=== PATIENT | female | born 1990 | race Caucasian/White ===

== ENCOUNTER 2020-06-14 16:41 | Outpatient (RCR) | payer OTHER, SELFPAY ==
[2020-06-15] MEDS: RHO(D) IMMUNE GLOBULIN 300 MCG SYRINGE IM (09:35)
== END 2020-09-08 23:59 | disposition home or self-care (01) ==
LOC: ANHLAB 16:41
PROVIDERS: Visit Provider Obstetrics & Gynecology
DX: Z29.13 Encounter for prophylactic Rho(D) immune globulin (principal); O36.0990 Maternal care for other rhesus isoimmunization, unspecified trimester, not applicable or unspecified; Z3A.00 Weeks of gestation of pregnancy not specified
CPT/HCPCS: 36415; 85461; 90384; 96372; J2790

== ENCOUNTER 2020-08-06 09:31 | Outpatient (RCR) | payer OTHER, SELFPAY ==
[2020-07-23 09:30] VITALS: BP 142/90
[2020-08-06 10:48] LABS: Hematocrit 36.1 % (37.0-47.0); Hemoglobin 12.5 g/dL (12.0-15.0); Mean Corpuscular HGB Conc 34.6 g/dl (32-36); Mean Corpuscular Hemoglobin 29.7 pg (26-34); Mean Corpuscular Volume 85.7 fl (80-100); Mean Platelet Volume 10.4 fl (7.4-10.4); Platelet Count Result 262 k/mm3 (150-375); Red Blood Count 4.21 M/mm3 (4.2-5.4); White Blood Count 11.3 K/mm3 (4.5-10.0)
--- NOTE | 2020-08-06 10:54 | PC.NURSE ---
1023--Page returned by Dr. Hoover, reported pt's BP's, current medication, reactive NST and GA of 35.6 weeks. Orders received for [facility] labs to be done at this time and call with results.
[2020-08-06 11:00] VITALS: BP 150/101; PULSE 110
[2020-08-06 11:00] LABS: Creatinine Urine 288.5 mg/dL; Total Protein Urine Random 17 mg/dL
[2020-08-06 11:01] LABS: Alanine Aminotransferase 16 U/L (4-35); Albumin Level 3.8 g/dL (3.5-5.1); Alkaline Phosphatase 167 U/L (38-126); Anion Gap 8 mmol/L (8-16); Aspartate Amino Transferase 24 U/L (14-36); Bilirubin,Total 0.1 mg/dL (0.2-1.3); Blood Urea Nitrogen 11 mg/dL (7-17); Calcium 9.1 mg/dL (8.4-10.2); Carbon Dioxide 20 mmol/L (22-30); Chloride 104 mmol/L (98-107); Estimated Glomerular Filt Rate > 60; Glucose 121 mg/dL (65-105); Potassium 3.9 mmol/L (3.4-5.0); Sodium 132 mmol/L (137-145)
--- NOTE | 2020-08-06 11:25 | PC.NURSE ---
1120--Dr. Hoover at to see pt., lab results, BP's, and NST reivewed. Orders for betamethasone IM today and repeat in 24hrs.
--- NOTE | 2020-08-06 11:56 | WPDOBADMIT ---
Obstetrics - Admit Note Admission Note: record reviewed. Additions to the history and/or subsequent changes in the physical findings follow. 29 y/o G1 at 35 6/7 weeks with chronic HTN, here for NST. She is taking nifedipine XL 90 mg daily, had a dose this morning. Anxiety is worsening. She has bp measurements from home over the last few days in the 140/80 range. No headache, epigastric or RUQ pain or headache. No edema. Good movement. She has always been plagued by white coat HTN and it is difficult to assess her blood pressure when she is upset. She is visibly upset this morning. BP 150/90 initially. Has increased as she has gotten more upset. Otherwise, VSS. ABD soft, nontender, gravid EXT nontender, no edema NEURO: DTR 2+/4 and symmetric. NST reactive TOCO: no contractions. Cr 0.9, uric acid 7. Otherwise, labs unremarkable and urine Pr:Cr is low. A: IUP at 35 6/7 weeks, chronic HTN, anxiety. Doubt preeclampsia. P: Home to monitor bp at home. Reviewed instructions. Start a course of betamethasone and see me on Saturday. Also start fluoxetine 20 mg po daily. Reviewed instructions, precautions, risks/benefits in detail.
== END 2020-08-16 07:59 | disposition home or self-care (01) ==
LOC: ANHOBOP 09:31
PROVIDERS: Visit Provider Obstetrics & Gynecology
DX: O16.3 Unspecified maternal hypertension, third trimester (principal); Z3A.34 34 weeks gestation of pregnancy; Z3A.36 36 weeks gestation of pregnancy
CPT/HCPCS: 36415; 59025; 80053; 81050; 82570; 84156; 84550; 85027

== ENCOUNTER 2020-08-07 11:59 | Outpatient (RCR) | payer OTHER, SELFPAY ==
[2020-08-06] MEDS: BETAMETHASONE SOD PHOS/ACETATE 30 MG/5 ML VIAL 12 MG IM (11:50)
[2020-08-07] MEDS: BETAMETHASONE SOD PHOS/ACETATE 30 MG/5 ML VIAL 12 MG IM (12:11)
== END 2020-08-16 07:59 | disposition home or self-care (01) ==
LOC: ANHOBOP 11:59
PROVIDERS: Visit Provider Obstetrics & Gynecology
DX: O36.8990 Maternal care for other specified fetal problems, unspecified trimester, not applicable or unspecified (principal); Z3A.00 Weeks of gestation of pregnancy not specified
CPT/HCPCS: 96372; J0702

== ENCOUNTER 2020-08-15 18:20 | Inpatient (IN) | payer OTHER, SELFPAY ==
[2020-08-15] VITALS (13 sets, daily range): BP systolic 143–179; BP diastolic 81–113; PULSE 79–105; TEMP 36.9; BMI 37.9
[2020-08-15 19:15] LABS: Basophils Percent Auto 0.2 % (0.2-1.2); Hematocrit 36.6 % (37.0-47.0); Hemoglobin 12.9 g/dL (12.0-15.0); Immature Granulocyte Absolute 0.08 K/mm3 (0.00-0.031); Immature Granulocyte Percent A 0.6 % (0-0.5); Lymphocytes Absolute Auto 2.42 K/mm3 (0.9-3.2); Lymphocytes Percent Auto 19.3 % (18.3-44.2); Mean Corpuscular HGB Conc 35.2 g/dl (32-36); Mean Corpuscular Hemoglobin 29.9 pg (26-34); Mean Corpuscular Volume 84.7 fl (80-100); Mean Platelet Volume 10.5 fl (7.4-10.4); Monocytes Absolute Auto 0.8 K/mm3 (0.1-0.6); Neutrophils Absolute Auto 9.3 K/mm3 (1.3-6.7); Neutrophils Percent Auto 73.9 % (45.5-73.1); Platelet Count Result 276 k/mm3 (150-375); Red Blood Count 4.32 M/mm3 (4.2-5.4); Red Cell Distribution Width 11.9 % (11.5-14.5); White Blood Count 12.6 K/mm3 (4.5-10.0)
[2020-08-15 19:25] LABS: Anion Gap 9 mmol/L (8-16); Blood Urea Nitrogen 13 mg/dL (7-17); Carbon Dioxide 22 mmol/L (22-30); Chloride 96 mmol/L (98-107); Estimated Glomerular Filt Rate > 60; Glucose 91 mg/dL (65-105); Potassium 3.6 mmol/L (3.4-5.0); Sodium 127 mmol/L (137-145); Uric Acid 6.8 mg/dL (2.5-7.5)
[2020-08-15 19:26] LABS: Alanine Aminotransferase 17 U/L (4-35); Alkaline Phosphatase 168 U/L (38-126); Aspartate Amino Transferase 28 U/L (14-36); Bilirubin,Total 0.2 mg/dL (0.2-1.3)
[2020-08-15] MEDS: LACTATED RINGERS 1,000 ML 125 ML IV CONT (19:26)
[2020-08-15] MEDS: ceFAZolin 2 GM/D5W 50 ML 2 GM/50 ML BAG IVPB (19:27)
--- NOTE | 2020-08-15 19:49 | LDADM ---
This patient, Ally Rodrigues, was admitted to Labor/Delivery/Recovery 105 on 08/15/20 at 18:20. Plans for labor, pain management and were discussed with patient. Patient/family oriented to hospital policies and general routines including ID bracelet, bed and alarms, visiting hours, pain management, procedures, bathroom and other care routines, personal items, smoking policy, room service/diet and guest tray routines, security routines, and visiting hours. Patient/Family are encouraged to report perceived risks to care and to ask questions if they do not understand what they are told or what they should do. See OBIX for further documentation.
[2020-08-15] MEDS: DINOPROSTONE 10 MG VAG INSERT VAGINAL (19:59)
[2020-08-15] MEDS: fentaNYL CITRATE INJ (*CRX) 100 MCG/2 ML VIAL IV PUSH (23:15)
[2020-08-16] VITALS (175 sets, daily range): BP systolic 118–175; BP diastolic 75–133; PULSE 49–132; RESP 14–20; TEMP 36.4–37.1; O2SAT 89–100
[2020-08-16] MEDS: fentaNYL CITRATE INJ (*CRX) 100 MCG/2 ML VIAL IV PUSH ×2 (01:47→03:35)
[2020-08-16] MEDS: OXYTOCIN 30 UNITS/NS 500 ML 30 UNITS/500 ML BAG 6 UNITS IV CONT (05:42)
--- NOTE | 2020-08-16 07:39 | WPDANESEPP ---
Anes - Eval Pre Procedure Procedure: Labor epidural Date/Time: 08/16/20 07:39 Surgeon: Sneha Preop Diagnosis: pain during labor Pre Op Diagnosis: IOL Patient Data Age: 29 Gender: F Height: 1.68 m Weight: 106.5 kg Last Vital Signs Temp 36.8 C 08/16/20 06:56 Pulse 97 08/16/20 07:37 BP 147/87 H 08/16/20 07:37 Pulse Ox 100 08/16/20 07:39 Allergies Allergy/AdvReac Type Severity Reaction Status Date / Time succinylcholine Allergy Severe MALIGNANT Verified 08/06/20 14:57 HYPERTHERMIA Penicillins Allergy Unknown Hives Verified 08/06/20 14:44 DIPHENHYDRAMINE HCL Allergy Severe HIVES/NAUSEA Uncoded 08/12/17 14:09 AND VOMITING Home Medications Medication Instructions Recorded Confirmed Type fluoxetine 20 mg PO DAILY #30 cap 08/06/20 08/15/20 Rx nifedipine 60 mg PO BID 08/06/20 08/15/20 History Laboratory Tests 08/15/20 08/15/20 08/15/20 19:06 19:06 19:06 WBC 12.6 K/mm3 H K/mm3 (4.5-10.0) RBC 4.32 M/mm3 M/mm3 (4.2-5.4) Hgb 12.9 g/dL g/dL (12.0-15.0) Hct 36.6 % L % (37.0-47.0) MCV 84.7 fl fl (80-100) MCH 29.9 pg pg (26-34) MCHC 35.2 g/dl g/dl (32-36) RDW 11.9 % % (11.5-14.5) Plt Count 276 k/mm3 k/mm3 (150-375) MPV 10.5 fl H fl (7.4-10.4) Immature Gran % (Auto) 0.6 % H % (0-0.5) Neut % (Auto) 73.9 % H % (45.5-73.1) Lymph % (Auto) 19.3 % % (18.3-44.2) [place] % (Auto) 6.0 % % (2.6-8.5) Eos % (Auto) 0.0 % % (0-4.4) Baso % (Auto) 0.2 % % (0.2-1.2) Lymph # (Auto) 2.42 K/mm3 K/mm3 (0.9-3.2) [place] # (Auto) 0.8 K/mm3 H K/mm3 (0.1-0.6) Eos # (Auto) 0.0 K/mm3 K/mm3 (0-0.3) Baso # (Auto) 0.0 K/mm3 K/mm3 (0.0-0.1) Abs Immat Gran (auto) 0.08 K/mm3 H K/mm3 (0.00-0.031) Absolute Neuts (auto) 9.3 K/mm3 H K/mm3 (1.3-6.7) Absolute Nucleated RBC 0.0 K/mm3 K/mm3 (0.0-0.012) Nucleated RBC % 0.0 % % (0.0-0.2) Sodium 127 mmol/L L mmol/L (137-145) Potassium 3.6 mmol/L mmol/L (3.4-5.0) Chloride 96 mmol/L L mmol/L (98-107) Carbon Dioxide 22 mmol/L mmol/L (22-30) Anion Gap 9 mmol/L mmol/L (8-16) BUN 13 mg/dL mg/dL (7-17) Creatinine 0.80 mg/dL mg/dL (0.7-1.0) Estim Creat Clear Calc Not Reportable Estimated GFR > 60 (59 - ) Glucose 91 mg/dL mg/dL (65-105) Uric Acid 6.8 mg/dL mg/dL (2.5-7.5) Calcium 9.0 mg/dL mg/dL (8.4-10.2) Total Bilirubin 0.2 mg/dL mg/dL (0.2-1.3) AST 28 U/L U/L (14-36) ALT 17 U/L U/L (4-35) Alkaline Phosphatase 168 U/L H U/L (38-126) Total Protein 7.0 g/dL g/dL (6.3-8.2) Albumin 4.0 g/dL g/dL (3.5-5.1) RPR Pending Blood Type Antibody Screen Antibody Identification Antigen Identification CHUCK, IgG Interpret CHUCK, Poly Interpret CHUCK, Complement Interp 08/15/20 08/15/20 19:06 19:06 WBC RBC Hgb Hct MCV MCH MCHC RDW Plt Count MPV Immature Gran % (Auto) Neut % (Auto) Lymph % (Auto) [place] % (Auto) Eos % (Auto) Baso % (Auto) Lymph # (Auto) [place] # (Auto) Eos # (Auto) Baso # (Auto) Abs Immat Gran (auto) Absolute Neuts (auto) Absolute Nucleated RBC Nucleated RBC % Sodium Cancelled Potassium Cancelled Chloride Cancelled Carbon Dioxide Cancelled Anion Gap Cancelled BUN Cancelled Creatinine Cancelled Estim Creat Clear Calc Can
[2020-08-16] MEDS: LACTATED RINGERS 1,000 ML 125 ML IV CONT (07:42)
[2020-08-16 08:24] LABS: Rapid Plasma Reagin Non-Reactive (NonReactive)
--- NOTE | 2020-08-16 08:40 | PM.IMHP ---
H&P: HPI History of Present Illness Date/Time: 08/16/20 12:52 Chief complaint: IOL Narrative: 29 y/o G1 at 37 3/7 weeks with chronic hypertension, worsening blood pressure control. She is taking Procardia XL 60 mg po bid. No headache, no epigastric or RUQ pain, no visual field change. Good movement. Cervidil overnight, has been withdrawn. She is starting to feel more painful contractions. GBS pos. Received steroids for lung maturity last week. Review of Systems Review of Systems: All systems reviewed & are unremarkable except as noted in HPI and below PMFSH Past Medical History Medical History Depression Obesity (BMI 35.0-39.9 without comorbidity) PIH ( induced hypertension) Family History Family History Mother Family history of allergic disorder Family history of anemia Asthma Other Carcinoma of colon Father Hypertension Social History Social History Smoking status: Never smoker Second hand tobacco smoke exposure: No Alcohol intake: current Substance use: never Spiritual care concerns: No Meds Home Medications and Allergies Home Medications Medication Instructions Recorded Confirmed Type fluoxetine 20 mg PO DAILY #30 cap 08/06/20 08/15/20 Rx nifedipine 60 mg PO BID 08/06/20 08/15/20 History Allergies Allergy/AdvReac Type Severity Reaction Status Date / Time succinylcholine Allergy Severe MALIGNANT Verified 08/06/20 14:57 HYPERTHERMIA Penicillins Allergy Unknown Hives Verified 08/06/20 14:44 DIPHENHYDRAMINE HCL Allergy Severe HIVES/NAUSEA Uncoded 08/12/17 14:09 AND VOMITING Vital Signs Vital Signs - 24 hr 08/15/20 19:01 08/15/20 19:26 08/15/20 19:31 Temperature Pulse Rate 105 H 89 88 Blood Pressure 175/108 H 179/108 H 164/107 H Pulse Oximetry 08/15/20 19:33 08/15/20 20:01 08/15/20 20:31 Temperature 36.9 C Pulse Rate 79 84 Blood Pressure 168/101 H 147/104 H Pulse Oximetry 08/15/20 21:01 08/15/20 21:31 08/15/20 21:55 Temperature 36.9 C Pulse Rate 89 102 H Blood Pressure 143/81 H 144/82 H Pulse Oximetry 08/15/20 22:01 08/15/20 22:31 08/15/20 23:01 Temperature Pulse Rate 89 91 90 Blood Pressure 158/106 H 163/103 H 170/113 H Pulse Oximetry 08/15/20 23:31 08/16/20 00:01 08/16/20 00:31 Temperature Pulse Rate 93 95 98 Blood Pressure 157/109 H 157/89 H 155/86 H Pulse Oximetry 08/16/20 00:44 08/16/20 01:01 08/16/20 01:31 Temperature 36.8 C Pulse Rate 97 94 Blood Pressure 151/89 H 153/93 H Pulse Oximetry 08/16/20 01:50 08/16/20 02:40 08/16/20 02:46 Temperature 36.6 C Pulse Rate 94 87 Blood Pressure 150/100 H Pulse Oximetry 08/16/20 03:01 08/16/20 03:31 08/16/20 04:01 Temperature Pulse Rate 86 85 83 Blood Pressure 167/111 H 158/101 H 157/105 H Pulse Oximetry 08/16/20 04:31 08/16/20 05:01 08/16/20 05:12 Temperature 36.4 C Pulse Rate 82 85 Blood Pressure 158/110 H 159/108 H Pulse Oximetry 08/16/20 05:31 08/16/20 06:01 08/16/20 06:31 Temperature Pulse Rate 81 88 92 Blood Pressure 150/100 H 169/97 H 156/97 H Pulse Oximetry 08/16/20 06:56 08/16/20 07:01 08/16/20 07:06 Temperature 36.8 C Pulse Rate 83 Blood Pressure 160/106 H Pulse Oximetry 99 100 98 08/16/20 07:11 08/16/20 07:16 08/16/20 07:21 Temperature Pulse Rate Blood Pressure Pulse Oximetry 100 100 100 08/16/20 07:26 08/16/20 07:31 08/16/20 07:32 Temperature Pulse Rate 92 91 Blood Pressure 154/105 H 163/92 H Pulse Oximetry 100 100 08/16/20 07:34 08/16/20 07:37 08/16/20 07:39 Temperature Pulse Rate 112 H 97 Blood Pressure 146/133 H 147/87 H Pulse Oximetry 100 100 08/16/20 07:40 08/16/20 07:43 08/16/20 07:44 Temperature Pulse Ra
--- NOTE | 2020-08-16 12:57 | PM.OBPNLAB ---
Pain Control Date/time seen: 08/16/20 12:57 Comments: Comfortable with epidural. BP 140-160/90. Otherwise, AVSS. Pelvic Exam Dilation (cm): 4 Effacement (%): 50 station: -2 Contractions Contraction frequency: 3 Contraction pattern: Regular Status status: Category l Assessment and Plan Comments: Continue oxytocin.
--- NOTE | 2020-08-16 16:33 | PM.OBPNLAB ---
Pain Control Date/time seen: 08/16/20 16:33 Comments: Still comfortable Pelvic Exam Effacement (%): 80 station: -2 Comments: -/-2 Contractions Contraction frequency: 3 Contraction pattern: Regular Status status: Category l
--- NOTE | 2020-08-16 17:45 | PM.OBPNLAB ---
Pain Control Date/time seen: 08/16/20 17:45 Comments: Still comfortable. Pelvic Exam Dilation (cm): 4 Effacement (%): 80 station: -2 Contractions Contraction frequency: 3 Contraction pattern: Regular Status status: Category l Assessment and Plan Comments: A: Arrest of dilation in labor. No significant progress in 5 hours despite adequate contractions by IUPC. P: Offered . Reviewed risks, benefits, alternatives in detail. She understands and elects to proceed.
--- NOTE | 2020-08-16 17:56 | WPDANESEFPP ---
Anes - Eval Final PreProcedure Day of Procedure 08/16/20 17:56 Patient weight: obese Heart: regular rate and rhythm Lungs: clear to auscultation and normal air movement Airway: Mallampati scale class 1 Neurological: alert and oriented Last oral intake: >/= 8 hours ASA classification: III Emergent: no Anesthetic plan: proceed Anesthesia type and monitoring: regional epidural and standard monitoring Other findings: C section - family history of MH Informed Consent: The patient's anesthetic plan and its attendant risks and benefits were discussed with the patient/family/POA. Questions were solicited and answers provided to the satisfaction of the patient/family/POA.
[2020-08-16] MEDS: ceFAZolin 2 GM/D5W 50 ML 2 GM/50 ML BAG IVPB (18:11)
--- NOTE | 2020-08-16 18:57 | P.PCNOB_ITS ---
OB - Delivery Note Procedure Procedure: Procedures Operation Date: 08/16/20 18:00 <No data on this case meets the specified criteria> Primary low transverse delivery Delivery monitor: external FHT, external uterine and internal uterine Route of delivery: Specimen: Yes (cord blood, placenta) Estimated blood loss (mL): 585 Anesthesia type: Epidural Disposition: PACU Complications: None Narrative: The patient was taken to the operating room where she was prepared and draped in the usual sterile fashion in dorsal supine position with a leftward tilt. She received cefazolin preoperatively. Spinal anesthesia was found to be adequate. A Pfannenstiel skin incision was made and carried through to the underlying layer of the fascia. The fascia was incised in the midline and the incision was extended laterally. The fascia was dissected free of the underlying rectus muscles. The rectus muscles were in the midline. The peritoneum was identified, tented up and entered sharply. The peritoneal incision was extended superiorly and inferiorly with good visualization of the bladder. The bladder blade was placed. The vesicouterine peritoneum was identified, tented up and entered sharply. The incision was extended laterally and the bladder flap was developed. The bladder blade was replaced. The uterus was then incised sharply in a transverse fashion along the lower uterine segment. The incision was extended laterally. The infant's head was delivered atraumatically to the sterile field, followed by the body. The nose and mouth were bulb suctioned. After a delay, the cord was clamped and cut. The infant was handed off the field. Cord blood was collected. The placenta was removed manually and was passed off the field. The uterus was exteriorized and cleared of all clots and debris. The uterine incision was reapproximated using 0 Monocryl in a running, locked fashion. A second, imbricating layer of the same suture was placed. Excellent hemostasis resulted as did excellent reapproximation of the normal anatomy. The uterus was returned the abdomen. The pelvis was irrigated copiously with warmed normal saline. Rigorous hemostasis was assured. The fascial layer was reapproximated using 0 Vicryl in a running fashion. Interrupted sutures of 2-0 plain gut were placed to reapproximate the subcutaneous tissue. The skin was closed with a running, subcuticular stitch of 4 0 Vicryl. Dermaflex was applied externally. Sponge, lap, needle and instrument counts were correct. The patient was taken to the recovery room in stable condition. The went to the nursery in stable condition. I was present and scrubbed the entire procedure. [place] Baby Date of : 08/16/20 Time of : 18:27 Weeks of gestation at delivery: 37 gender: Male Weight (pounds): 6 Weight (ounces): 9 presentation: vertex Placenta delivery description: Manual Removal and Normal Configuration cord vessel description: 3 Vessels score one minute: 7 score five minutes: 9
--- NOTE | 2020-08-16 18:59 | PM.OBDSVD ---
DS: Admitting Diagnosis Admitting Diagnosis Admitting Diagnosis: IUP at 37 3/7 weeks Chronic hypertension with worsening blood pressure control GBS colonization OB - DS: Summary OB Procedures : None OB Procedures Intrapartum: OB Procedures: : RHo (D) lg Peripartum Data Procedures: Procedures Operation Date: 08/16/20 18:00 <No data on this case meets the specified criteria> Time Spent with Patient Time attestation: Total time spent providing and/or coordinating discharge services: DS: Data Data Completed and Pending Labs on day of discharge: Labs from last 24 hours 08/15/20 08/15/20 08/15/20 19:06 19:06 19:06 WBC RBC Hgb Hct MCV MCH MCHC RDW Plt Count MPV Immature Gran % (Auto) Neut % (Auto) Lymph % (Auto) [place] % (Auto) Eos % (Auto) Baso % (Auto) Lymph # (Auto) [place] # (Auto) Eos # (Auto) Baso # (Auto) Abs Immat Gran (auto) Absolute Neuts (auto) Absolute Nucleated RBC Nucleated RBC % Sodium Cancelled Potassium Cancelled Chloride Cancelled Carbon Dioxide Cancelled Anion Gap Cancelled BUN Cancelled Creatinine Cancelled Estim Creat Clear Calc Cancelled Estimated GFR Cancelled Glucose Cancelled Uric Acid Calcium Cancelled Total Bilirubin Cancelled AST Cancelled ALT Cancelled Alkaline Phosphatase Cancelled Total Protein Cancelled Albumin Cancelled RPR Non-reactive Blood Type A Negative Antibody Screen Positive Antibody Identification Passive Due to RH Imm Glob Antigen Identification Cancelled CHUCK, IgG Interpret Not Performed CHUCK, Poly Interpret Negative CHUCK, Complement Interp Not Performed 08/15/20 08/15/20 19:06 19:06 WBC 12.6 H RBC 4.32 Hgb 12.9 Hct 36.6 L MCV 84.7 MCH 29.9 MCHC 35.2 RDW 11.9 Plt Count 276 MPV 10.5 H Immature Gran % (Auto) 0.6 H Neut % (Auto) 73.9 H Lymph % (Auto) 19.3 [place] % (Auto) 6.0 Eos % (Auto) 0.0 Baso % (Auto) 0.2 Lymph # (Auto) 2.42 [place] # (Auto) 0.8 H Eos # (Auto) 0.0 Baso # (Auto) 0.0 Abs Immat Gran (auto) 0.08 H Absolute Neuts (auto) 9.3 H Absolute Nucleated RBC 0.0 Nucleated RBC % 0.0 Sodium 127 L Potassium 3.6 Chloride 96 L Carbon Dioxide 22 Anion Gap 9 BUN 13 Creatinine 0.80 Estim Creat Clear Calc Not Reportable Estimated GFR > 60 Glucose 91 Uric Acid 6.8 Calcium 9.0 Total Bilirubin 0.2 AST 28 ALT 17 Alkaline Phosphatase 168 H Total Protein 7.0 Albumin 4.0 RPR Blood Type Antibody Screen Antibody Identification Antigen Identification CHUCK, IgG Interpret CHUCK, Poly Interpret CHUCK, Complement Interp Discharge Plan Discharge Attending physician on discharge: Felton Hoover Discharging Clinician: Felton Hoover Patient Disposition: Home, Self-Care Activity: may shower, may drive after 2 weeks and pelvic rest Diet: regular Wound Care Instructions: incision open to air Discharge Instructions: Education: Mom and Baby Guide Given to: Mother Follow-Up: Call your delivering provider's office for an appointment to be seen in: 1 Week Mom and baby should come to the [facility] for the follow-up appointment. Appointment Date/Time: August 19, 2020 at 10:00 am What to expect at your follow-up visit: Blood Pressure Check Call [phone] if you are unable to keep your appointment time. BREAST CARE: * Wear a snug supportive bra. * For engorgement discomfort: Breast Feeding: * Apply warm moist washcloths * Express milk as needed to relieve engorgement * Wear loose clothing Bottle Feeding: * May apply ice packs * For sore nipples: * Identify correct latch-on * Apply warm moist washcloths before and after nursing * Air dry nipples after
[2020-08-16] MEDS: OXYTOCIN 30 UNITS/NS 500 ML 30 UNITS/500 ML BAG 125 UNITS IV CONT (19:28)
--- NOTE | 2020-08-16 21:10 | PC.NURSE ---
Pt recovery completed. Report called to Merced Aden RN. Pt going to room 284 for pp care. Stopping by labor room to show family baby through window and then will be moved up to pp floor.
--- NOTE | 2020-08-16 21:29 | PC.NURSE ---
Pt states she took home dose of Procardia 60mg Xl at 1800 per 's instruction. Will not give scheduled 2100 dose, will restart in am.
--- NOTE | 2020-08-16 21:30 | PC.NURSE ---
Pt taken up to room 284 at this time via stretcher. , SO and belongings all with pt.
--- NOTE | 2020-08-16 21:35 | OBPPTRN ---
Patient transferred to post room #284 via stretcher. Support person present. Oriented to unit, room, information board, rooming in, admission packet and security measures. Patient verbalizes understanding.
[2020-08-16] MEDS: IBUPROFEN 600 MG TABLET PO (22:21)
[2020-08-16] MEDS: DEXTROSE 5%/0.45% SOD CHL 1,000 ML 125 ML IV CONT (23:46)
[2020-08-16] MEDS: HYDROcodone/acetaminophen (*CRX) 5-325 MG TABLET 1 TAB PO (23:46)
[2020-08-17] VITALS (7 sets, daily range): BP systolic 138–160; BP diastolic 90–95; PULSE 75–100; RESP 16–20; TEMP 36.4–36.9; O2SAT 99–100
[2020-08-17] MEDS: HYDROcodone/acetaminophen (*CRX) 5-325 MG TABLET 1 TAB PO ×5 (04:34→22:59)
[2020-08-17] MEDS: IBUPROFEN 600 MG TABLET PO ×4 (04:34→22:59)
[2020-08-17 05:10] LABS: Basophils Absolute Auto 0.1 K/mm3 (0.0-0.1); Basophils Percent Auto 0.3 % (0.2-1.2); Hematocrit 32.6 % (37.0-47.0); Hemoglobin 11.4 g/dL (12.0-15.0); Immature Granulocyte Absolute 0.25 K/mm3 (0.00-0.031); Immature Granulocyte Percent A 0.9 % (0-0.5); Lymphocytes Absolute Auto 3.04 K/mm3 (0.9-3.2); Lymphocytes Percent Auto 11.1 % (18.3-44.2); Mean Corpuscular Hemoglobin 30.5 pg (26-34); Mean Corpuscular Volume 87.2 fl (80-100); Mean Platelet Volume 10.7 fl (7.4-10.4); Monocytes Absolute Auto 1.6 K/mm3 (0.1-0.6); Monocytes Percent Auto 5.9 % (2.6-8.5); Neutrophils Absolute Auto 22.3 K/mm3 (1.3-6.7); Neutrophils Percent Auto 81.8 % (45.5-73.1); Platelet Count Result 223 k/mm3 (150-375); Red Blood Count 3.74 M/mm3 (4.2-5.4); Red Cell Distribution Width 12.2 % (11.5-14.5); White Blood Count 27.3 K/mm3 (4.5-10.0)
--- NOTE | 2020-08-17 07:45 | PC.NURSE ---
PT introductions made and plan of care discussed per post op c section , pain management, breast feeding, daily care activities. PT verbalized understanding of such care.
--- NOTE | 2020-08-17 08:56 | P.PNOB_ITS ---
OB - PN: Subj Subjective Date/time seen: 08/17/20 08:56 Narrative: Pain OK. Tolerating diet. Would like circumcision for son. OB - PN: Obj Data Labs CBC & Chem 7: 08/17/20 04:23 08/15/20 19:06 Labs: Laboratory Results - last 24 hr 08/17/20 08/17/20 04:23 04:23 WBC 27.3 H RBC 3.74 L Hgb 11.4 L Hct 32.6 L MCV 87.2 MCH 30.5 MCHC 35.0 RDW 12.2 Plt Count 223 MPV 10.7 H Immature Gran % (Auto) 0.9 H Neut % (Auto) 81.8 H Lymph % (Auto) 11.1 L [place] % (Auto) 5.9 Eos % (Auto) 0.0 Baso % (Auto) 0.3 Lymph # (Auto) 3.04 [place] # (Auto) 1.6 H Eos # (Auto) 0.0 Baso # (Auto) 0.1 Abs Immat Gran (auto) 0.25 H Absolute Neuts (auto) 22.3 H Absolute Nucleated RBC 0.0 Nucleated RBC % 0.0 Blood Type A Negative Antibody Screen TNP Screen Negative Baby's Blood Type O pos Baby's CHUCK Negative Doses of RhIg Required 1 OB - PN A/P Plan Comments: A: POD#1, doing well. P: Routine care. Reviewed circ. Exam Narrative: Exam Narrative: AVSS I/O OK ABD soft, nontender, fundus firm. Incision c/d/i. EXT nontender
--- NOTE | 2020-08-17 09:45 | PC.NURSE ---
Mother called out for assist with feeding . Consulted with patient, mother reports infant is sleepy and is having difficulties with latching. is inconsistent with eagerness and latching, some feedings infant will be easily awoken and latch other mother struggles to get to latch. Discussed and the 37 week , establishing may have it's own unique set of circumstances due to their immaturity. infants may be less alert, have less stamina and may have issues with latch, suck and swallow. With the possible inability to have a vigorous suck swallow, infants may not be adequately stimulating mother and/or able to have adequate milk transfer. Pumping should be considered for additional stimulation and to offer EBM as part of supplement if needed. Reviewed infant feeding cues, frequencies, duration of feedings, feeding elimination flow sheet, and signs of adequate intake. Demonstrated stimulation techniques to wake infant for feeding. Assisted with to breast. Reviewed positioning/alignment in cross cradle, holding breast in U hold and guided asymmetrical latch on. Discussed the rational for each. was able to latch correctly. Infant held nipple in with no effective suckling noted. Advised to stimulate while feeding to keep infant awake and effectively feeding for increased intake and to assist with maintaining deep latch. Demonstrated how to adjust latch more deeply while feeding. Discussed feeding options at this time. has not nursed for 5.5 hours. Parents would like infant to be supplemented and mother will initiate pumping.
--- NOTE | 2020-08-17 10:00 | PC.NURSE ---
Breast pump provided due to ineffective feeding. Instructions given on breast pump care and usage, pumping schedule, nipple care, and collection and storage of breast milk. Encouraged [id number], breast massage and manual expression to stimulate supply. Assessed patient for correct flange size, placement and draw. Patient verbalizes and demonstrates understanding of instructions.
[2020-08-17] MEDS: SIMETHICONE 80 MG TAB.CHEW PO ×2 (10:45→16:06)
[2020-08-17] MEDS: MULTIVIT/MIN/PREN/FOL AC/IRON TABLET 1 TAB PO (10:46)
[2020-08-17] MEDS: DOCUSATE SODIUM 100 MG CAPSULE PO ×2 (10:46→16:06)
[2020-08-17] MEDS: FLUoxetine HCL 20 MG CAPSULE PO (10:47)
[2020-08-17] MEDS: LANOLIN (LANSINOH) 7.5 GM CREAM 1 APPLIC TOPICAL (10:49)
--- NOTE | 2020-08-17 11:09 | WPDANLDPN2 ---
Anes-Prog Note L&D Date/Time: 08/17/20 11:09 Comfortable throughout: section Neuraxial method: spinal Epidural/Spinal procedure site: clean & non-tender Neuro status: Neuro function grossly intact. Cardiovascular status: normal Respiratory status: normal Airway patency: baseline Mental status: baseline Post-Op hydration status: normal Vital Signs: Last Vital Signs Temp 36.4 C 08/17/20 04:00 Pulse 75 08/17/20 04:00 Resp 16 08/17/20 04:00 BP 157/90 H 08/17/20 04:00 Pulse Ox 100 08/17/20 04:00 Pain score (VAS): 12/04 I/O: Intake & Output 08/16/20 08/17/20 08/17/20 23:59 07:59 15:59 Intake Total 1550 500 Output Total 278 3050 Balance 1272 -2550 Post-procedural complaints: none Patient feedback: Patient satisfied with anesthetic care.
--- NOTE | 2020-08-17 11:09 | WPDANLDNPN2 ---
Anes-Prog Note L&D-Neuraxial Date/Time: 08/17/20 11:09 Neuraxial medications: intrathecal PF morphine Opiod-related complaints: none Patient feedback: Patient satisfied with post-operative pain management.
[2020-08-17] MEDS: NIFEdipine 30 MG TAB.ER.24 60 MG PO (20:16)
[2020-08-18] MEDS: HYDROcodone/acetaminophen (*CRX) 5-325 MG TABLET 1 TAB PO ×5 (04:36→22:53)
[2020-08-18] MEDS: IBUPROFEN 600 MG TABLET PO ×3 (04:36→22:52)
--- NOTE | 2020-08-18 07:45 | PC.NURSE ---
PT introductions made and plan of care discussed per post op c section, pain management, breast feeding, daily care activities. PT verbalized understanding of such care.
[2020-08-18 08:15] VITALS: BP 145/97; PULSE 99; RESP 16; TEMP 36.7; O2SAT 100
[2020-08-18] MEDS: SIMETHICONE 80 MG TAB.CHEW PO ×3 (08:42→17:10)
[2020-08-18] MEDS: FLUoxetine HCL 20 MG CAPSULE PO (08:42)
[2020-08-18] MEDS: DOCUSATE SODIUM 100 MG CAPSULE PO ×2 (08:42→17:10)
[2020-08-18] MEDS: NIFEdipine 30 MG TAB.ER.24 60 MG PO ×2 (08:42→22:53)
[2020-08-18] MEDS: MULTIVIT/MIN/PREN/FOL AC/IRON TABLET 1 TAB PO (08:42)
[2020-08-18 08:45] VITALS: PULSE 99; RESP 16; O2SAT 100
--- NOTE | 2020-08-18 08:59 | WPDANLDPN2 ---
Anes-Prog Note L&D Date/Time: 08/18/20 08:59 Comfortable throughout: section Neuraxial method: spinal Epidural/Spinal procedure site: clean & non-tender Neuro status: Neuro function grossly intact. Cardiovascular status: normal Respiratory status: normal Airway patency: baseline Mental status: baseline Post-Op hydration status: normal Vital Signs: Last Vital Signs Temp 36.8 C 08/17/20 20:00 Pulse 100 08/17/20 20:00 Resp 20 08/17/20 20:00 BP 141/95 H 08/17/20 20:00 Pulse Ox 99 08/17/20 20:00 Pain score (VAS): 3 Post-procedural complaints: none Patient feedback: Patient satisfied with anesthetic care.
--- NOTE | 2020-08-18 09:00 | WPDANLDNPN2 ---
Anes-Prog Note L&D-Neuraxial Date/Time: 08/18/20 09:00 Neuraxial medications: intrathecal PF morphine Opiod-related complaints: none Patient feedback: Patient satisfied with post-operative pain management.
--- NOTE | 2020-08-18 11:05 | PC.NURSE ---
Consult with pt., mother reports remains sleepy for most feedings, will have a few eager feedings using the nipple shield. Mother supplements after each feeding and will then pump. Mother is attempting each feeding without shield first. Mother is able to independently latch using nipple shield. is more awake and vigorous with suckling than previous day. Encouraged to stimulate to keep awake and nursing effectively for increased intake and assist with maintaining latch. Mother is pumping without difficulties or discomfort. Requested mother call out for assist as needed.
--- NOTE | 2020-08-18 12:13 | PM.OBPNVD ---
OB - PN: Subj Subjective Date/time seen: 08/18/20 12:13 Narrative: Pain OK. OB - PN: Obj Data Labs CBC & Chem 7: 08/17/20 04:23 08/15/20 19:06 OB - PN A/P Plan Comments: A: POD#2, doing well. P: Routine care. Exam Narrative: Exam Narrative: AVSS. BP 140-150/80-90 I/O OK ABD soft, nontender, fundus firm. Incision c/d/i. Some ecchymosis of the incision and dependent lower abd/vulva. EXT nontender
[2020-08-18 14:00] VITALS: BP 150/92
[2020-08-18] MEDS: RHO(D) IMMUNE GLOBULIN 300 MCG SYRINGE IM (14:58)
[2020-08-18 15:00] VITALS: BP 148/76
[2020-08-18 19:40] VITALS: BP 151/96; PULSE 108; RESP 16; TEMP 36.6; O2SAT 100
--- NOTE | 2020-08-18 21:00 | PC.NURSE ---
Patient viewed the discharge video Mother & Baby Care, The First Two Weeks . Patient was given the opportunity and encouraged to ask questions. Patient verbalized understanding of information shared and has been given the mother/baby guide for home reference.
[2020-08-18 22:50] VITALS: BP 162/82; PULSE 110
[2020-08-19] MEDS: HYDROcodone/acetaminophen (*CRX) 5-325 MG TABLET 1 TAB PO (05:39)
[2020-08-19] MEDS: IBUPROFEN 600 MG TABLET PO (05:39)
[2020-08-19 08:30] VITALS: BP 154/87; PULSE 112; RESP 16; TEMP 36.4; O2SAT 100
[2020-08-19] MEDS: MULTIVIT/MIN/PREN/FOL AC/IRON TABLET 1 TAB PO (08:57)
[2020-08-19] MEDS: NIFEdipine 30 MG TAB.ER.24 60 MG PO (08:57)
[2020-08-19] MEDS: DOCUSATE SODIUM 100 MG CAPSULE PO (08:57)
[2020-08-19] MEDS: FLUoxetine HCL 20 MG CAPSULE PO (08:58)
--- NOTE | 2020-08-19 08:58 | PM.OBPNVD ---
OB - PN: Subj Subjective Date/time seen: 08/19/20 08:58 Narrative: Pain OK. Tolerating diet. Would like to go home. OB - PN: Obj Data Labs CBC & Chem 7: 08/17/20 04:23 08/15/20 19:06 Labs: Laboratory Results - last 24 hr 08/17/20 04:23 Blood Type A Negative Antibody Screen TNP Screen Negative Baby's Blood Type O pos Baby's CHUCK Negative Doses of RhIg Required 1 OB - PN A/P Plan Comments: A: POD#3, doing well. P: Home to f/u 4 weeks. Exam Narrative: Exam Narrative: AVSS ABD soft, nontender, fundus firm. Incision intact. Some ecchymosis. Small serosanguineous drainage. EXT nontender
--- NOTE | 2020-08-19 10:45 | PC.NURSE ---
Mother is able to independently latch with appropriate positioning/alignment without shield at times. She denies any nipple discomfort, is feeding as required and waking to feed if needed. is improving on eagerness and duration at the breast in the past 24 hours, and is currently meeting outcomes for weight, output, jaundice and feeding frequencies. Parents will continue to supplement after all feedings until mother's milk is established and infant is consistent with effective feedings. Discussed when may need to increase supplementation and when may be ready to decrease supplementation. Advised not to discontinue supplement until discussed with ICP. Mother states she feels confident to continue current feeding plan at home. Reviewed transition to breast milk, signs of adequate intake, and engorgement/relief. Instructed to call ICP if intake/output less than required. Reviewed regular medications mother is taking. Information provided per Bella. Reviewed community resources on the [facility] website and in the Mom/Baby guide. Information on outpatient services provided. Mother has no further questions at this time.
[2020-08-22 10:30] VITALS: BP 179/105; PULSE 120; RESP 24; O2SAT 100
== END 2020-08-19 14:15 | disposition home or self-care (01) | DRG 788 ==
LOC: ANHLDR 18:24 → ANHOB2 08-16 21:40
PROVIDERS: Admitting Provider Obstetrics & Gynecology; Visit Provider Obstetrics & Gynecology
PROC: 10D00Z1 Extraction of Products of Conception, Low, Open Approach (ICD-10-PCS; CPT 59514; principal; 2020-08-16 18:00)
DX: O10.92 Unspecified pre-existing hypertension complicating childbirth (principal); O99.824 Streptococcus B carrier state complicating childbirth; O62.1 Secondary uterine inertia; Z3A.37 37 weeks gestation of pregnancy; Z37.0 Single live birth; O99.214 Obesity complicating childbirth; E66.9 Obesity, unspecified
CPT/HCPCS: 36415; 80053; 84550; 85025; 85461; 86592; 86850; 86880; 86900; 86901; 88307; 90384; A9270; J0690; J1885; J2274; J2405; J2590; J2790; J2795; J3010; J7120

== ENCOUNTER 2021-09-04 08:21 | Outpatient (CLI) | payer OTHER, SELFPAY ==
[2021-09-04 08:34] LABS: Collection Time Urine 24 HOURS
[2021-09-04 10:10] LABS: Creatinine Urine 65.5 mg/dL; Patient Weight 200 Lbs; Total Protein Urine 24 Hr 238 mg/24hr (28-141); Total Protein Urine Random 9 mg/dL; Total Volume 24 Hour Urine 2650 ml
[2021-09-04 10:12] LABS: Creatinine Urine 65.9 mg/dL
[2021-09-04 10:13] LABS: Specific Gravity Ur 1.011
[2021-09-04 10:15] LABS: Creatinine 24 Hour Urine 1.7 gm/24 (0.8-1.8); Total Volume 24 Hour Urine 2650 ml
--- NOTE | 2021-09-06 12:58 | PC.NURSE ---
Per lab pt does not have a serum creatinine in lab. Attempted to contact pt (message left) Dr. Hoover advised of same. Per Dr. Hoover order we will do the 24 hour total protein. Serum creatinine order cancelled and lab made aware.
== END 2021-09-04 08:22 | disposition home or self-care (01) ==
LOC: ANHLAB 08:22
PROVIDERS: Visit Provider Obstetrics & Gynecology
DX: O13.9 Gestational [pregnancy-induced] hypertension without significant proteinuria, unspecified trimester (principal); Z3A.00 Weeks of gestation of pregnancy not specified
CPT/HCPCS: 81050; 82570; 82575; 84156

== ENCOUNTER 2022-01-07 06:46 | Outpatient (RCR) | payer OTHER, SELFPAY ==
[2022-01-07] MEDS: RHO(D) IMMUNE GLOBULIN 300 MCG/2 ML SYRINGE IM (08:10)
== END 2022-01-07 06:48 | disposition home or self-care (01) ==
LOC: ANHLAB 06:46
PROVIDERS: Visit Provider Obstetrics & Gynecology
DX: Z29.13 Encounter for prophylactic Rho(D) immune globulin (principal); O36.0190 Maternal care for anti-D [Rh] antibodies, unspecified trimester, not applicable or unspecified; Z3A.00 Weeks of gestation of pregnancy not specified
CPT/HCPCS: 36415; 85461; 90384; 96372; J2790

== ENCOUNTER 2022-02-13 16:33 | Outpatient (RCR) | payer OTHER, SELFPAY ==
[2022-01-28 10:27] VITALS: BP 141/86; PULSE 84
[2022-02-13 17:37] LABS: Basophils Percent Auto 0.3 % (0.2-1.2); Eosinophils Percent Auto 0.2 % (0-4.4); Hematocrit 33.2 % (37.0-47.0); Hemoglobin 10.7 g/dL (12.0-15.0); Immature Granulocyte Absolute 0.07 K/mm3 (0.00-0.031); Immature Granulocyte Percent A 0.7 % (0-0.5); Lymphocytes Absolute Auto 1.77 K/mm3 (0.9-3.2); Lymphocytes Percent Auto 16.8 % (18.3-44.2); Mean Corpuscular HGB Conc 32.2 g/dl (32-36); Mean Corpuscular Hemoglobin 28.9 pg (26-34); Mean Corpuscular Volume 89.7 fl (80-100); Mean Platelet Volume 10.6 fl (7.4-10.4); Monocytes Absolute Auto 0.6 K/mm3 (0.1-0.6); Monocytes Percent Auto 5.6 % (2.6-8.5); Neutrophils Absolute Auto 8.1 K/mm3 (1.3-6.7); Neutrophils Percent Auto 76.4 % (45.5-73.1); Platelet Count Result 286 k/mm3 (150-375); Red Cell Distribution Width 12.3 % (11.5-14.5); White Blood Count 10.5 K/mm3 (4.5-10.0)
[2022-02-13 17:39] LABS: Creatinine Urine 30.3 mg/dL; Total Protein Urine Random 11 mg/dL; Ur Ttl Prot Creatinine Ratio 0.36 mg/mg (0-0.20)
[2022-02-13 17:42] LABS: Add Urine Microscopic? NO; Appearance Urine Clear (Clear); Bilirubin Urine Negative (Negative); Blood Urine Negative (Negative); Color Urine Straw (Yellow); Glucose Urine UA Negative (Negative); Ketones Urine Negative (Negative); Leukocyte Esterase Ur Negative LEU/UL (Negative); Nitrate Urine Negative (Negative); Protein Urine Negative (Negative); Specific Grav Ur 1.006 (1.001-1.035); Urobilinogen Urine Negative mg/dL (<2.0)
[2022-02-13 18:04] LABS: Alanine Aminotransferase 15 U/L (4-35); Albumin Level 3.4 g/dL (3.5-5.1); Alkaline Phosphatase 115 U/L (38-126); Anion Gap 6 mmol/L (8-16); Aspartate Amino Transferase 24 U/L (14-36); Bilirubin,Total 0.1 mg/dL (0.2-1.3); Blood Urea Nitrogen 12 mg/dL (7-17); Calcium 8.9 mg/dL (8.4-10.2); Carbon Dioxide 23 mmol/L (22-30); Chloride 104 mmol/L (98-107); Estimated Glomerular Filt Rate > 60; Glucose 111 mg/dL (65-110); Sodium 133 mmol/L (137-145); Uric Acid 5.7 mg/dL (2.5-7.5)
[2022-02-13 18:20] VITALS: BP 162/89; PULSE 88
== END 2022-04-02 08:15 | disposition home or self-care (01) ==
LOC: ANHOBOP 16:33
PROVIDERS: Visit Provider Obstetrics & Gynecology
DX: O16.3 Unspecified maternal hypertension, third trimester (principal); Z3A.32 32 weeks gestation of pregnancy; Z3A.34 34 weeks gestation of pregnancy
CPT/HCPCS: 36415; 59025; 80053; 81003; 82570; 84156; 84550; 85025

== ENCOUNTER 2022-03-02 09:48 | Outpatient (CLI) | payer OTHER, SELFPAY ==
[2022-03-02 10:21] VITALS: BP 155/103; PULSE 104
[2022-03-02 10:26] LABS: Basophils Percent Auto 0.3 % (0.2-1.2); Eosinophils Percent Auto 0.1 % (0-4.4); Hematocrit 34.7 % (37.0-47.0); Hemoglobin 11.2 g/dL (12.0-15.0); Immature Granulocyte Absolute 0.08 K/mm3 (0.00-0.031); Immature Granulocyte Percent A 0.7 % (0-0.5); Lymphocytes Absolute Auto 1.72 K/mm3 (0.9-3.2); Lymphocytes Percent Auto 14.9 % (18.3-44.2); Mean Corpuscular HGB Conc 32.3 g/dl (32-36); Mean Corpuscular Hemoglobin 28.1 pg (26-34); Mean Platelet Volume 10.8 fl (7.4-10.4); Monocytes Absolute Auto 0.6 K/mm3 (0.1-0.6); Neutrophils Absolute Auto 9.1 K/mm3 (1.3-6.7); Platelet Count Result 310 k/mm3 (150-375); Red Blood Count 3.99 M/mm3 (4.2-5.4); Red Cell Distribution Width 12.8 % (11.5-14.5); White Blood Count 11.5 K/mm3 (4.5-10.0)
[2022-03-02 10:31] VITALS: BP 142/99; PULSE 100
[2022-03-02 10:32] VITALS: BP 142/99; PULSE 100
[2022-03-02 10:34] LABS: Add Urine Microscopic? YES; Appearance Urine Cloudy (Clear); Bacteria Urine Trace /hpf; Bilirubin Urine Negative (Negative); Blood Urine Negative (Negative); Color Urine Yellow (Yellow); Glucose Urine UA Negative (Negative); Ketones Urine Negative (Negative); Leukocyte Esterase Ur 3+ LEU/UL (NEGATIVE); Mucus Urine Few /lpf; Nitrate Urine Negative (Negative); Protein Urine 1+ mg/dL (Negative); RBC Urine 0-2 /hpf (0-2); Specific Grav Ur 1.025 (1.001-1.035); Squamous Epithelial Cell Urine Many /hpf (Few); Urobilinogen Urine Negative mg/dL (<2.0); WBC Urine 21-30 /hpf (0-3)
[2022-03-02 10:36] LABS: Alanine Aminotransferase 20 U/L (4-35); Albumin Level 3.6 g/dL (3.5-5.1); Alkaline Phosphatase 148 U/L (38-126); Anion Gap 8 mmol/L (8-16); Aspartate Amino Transferase 28 U/L (14-36); Bilirubin,Total 0.1 mg/dL (0.2-1.3); Blood Urea Nitrogen 12 mg/dL (7-17); Calcium 8.7 mg/dL (8.4-10.2); Carbon Dioxide 21 mmol/L (22-30); Chloride 103 mmol/L (98-107); Estimated Glomerular Filt Rate > 60; Glucose 103 mg/dL (65-110); Potassium 3.9 mmol/L (3.4-5.0); Sodium 132 mmol/L (137-145); Uric Acid 7.1 mg/dL (2.5-7.5)
[2022-03-02 10:46] VITALS: BP 146/78; PULSE 99
[2022-03-02 10:48] LABS: Creatinine Urine 326.1 mg/dL; Total Protein Urine Random 6 mg/dL; Ur Ttl Prot Creatinine Ratio 0.02 mg/mg (0-0.20)
== END 2022-03-02 11:00 | disposition home or self-care (01) ==
LOC: ANHOBOP 09:57 → ANHOBPP 09:58
PROVIDERS: Visit Provider Obstetrics & Gynecology
DX: R03.0 Elevated blood-pressure reading, without diagnosis of hypertension (principal)
CPT/HCPCS: 36415; 59025; 80053; 81001; 82570; 84156; 84550; 85025; 87086; 87088; 99199

== ENCOUNTER 2022-03-05 09:00 | Outpatient (CLI) | payer OTHER, SELFPAY ==
[2022-03-05 09:27] LABS: Hematocrit 32.9 % (37.0-47.0); Hemoglobin 10.7 g/dL (12.0-15.0); Mean Corpuscular HGB Conc 32.5 g/dl (32-36); Mean Corpuscular Hemoglobin 28.2 pg (26-34); Mean Corpuscular Volume 86.8 fl (80-100); Mean Platelet Volume 11.3 fl (7.4-10.4); Platelet Count Result 267 k/mm3 (150-375); Red Blood Count 3.79 M/mm3 (4.2-5.4); Red Cell Distribution Width 12.8 % (11.5-14.5); White Blood Count 10.5 K/mm3 (4.5-10.0)
[2022-03-06 06:54] LABS: Rapid Plasma Reagin Non-Reactive (NonReactive)
== END 2022-03-05 09:01 | disposition home or self-care (01) ==
LOC: ANHLAB 09:04
PROVIDERS: Visit Provider Obstetrics & Gynecology
DX: Z01.818 Encounter for other preprocedural examination (principal)
CPT/HCPCS: 36415; 85027; 86592; 86850; 86900; 86901

== ENCOUNTER 2022-03-07 10:06 | Inpatient (IN) | payer OTHER, SELFPAY ==
--- NOTE | 2022-03-06 11:20 | PC.NURSE ---
Verified with OR schedule and patient --C/S on 03/07/22 at [address] instructed to be in OB 2 hours before surgery and nothing by mouth 8 hours before surgery per Dr Hoover's orders Patient states she had pre-op labs drawn on Saturday
[2022-03-07] VITALS (50 sets, daily range): BP systolic 133–177; BP diastolic 76–112; PULSE 51–112; RESP 14–21; TEMP 36.3–36.6; O2SAT 94–100; BMI 41.4
[2022-03-07] MEDS: LACTATED RINGERS 1,000 ML 125 ML IV CONT ×2 (10:40→11:46)
--- NOTE | 2022-03-07 10:56 | LDADM ---
This patient, Ally Rodrigues, was admitted to Labor/Delivery/Recovery 119 on 03/07/22 at 10:06. Plans for labor, pain management and were discussed with patient. Patient/family oriented to hospital policies and general routines including ID bracelet, bed and alarms, visiting hours, pain management, procedures, bathroom and other care routines, personal items, smoking policy, room service/diet and guest tray routines, security routines, and visiting hours. Patient/Family are encouraged to report perceived risks to care and to ask questions if they do not understand what they are told or what they should do. See [facility] for further documentation.
--- NOTE | 2022-03-07 11:07 | WPDANESEPPF ---
Anes - Initial Pre Proc Eval Procedure: Operation Date: 03/07/22 12:00 Proposed Procedures p Section - Felton Hoover MD Date/Time: 03/07/22 11:07 Surgeon: Felton Hoover MD Pre Op Diagnosis: C/S Patient Data Age: 31 Gender: F Height: 1.7 m Weight: 120 kg Last Vital Signs Pulse 112 H 03/07/22 10:27 BP 159/104 H 03/07/22 10:27 Allergies Allergy/AdvReac Type Severity Reaction Status Date / Time diphenhydramine Allergy Severe Hives Verified 03/06/22 11:05 succinylcholine Allergy Severe MALIGNANT Verified 03/06/22 11:05 HYPERTHERMIA Home Medications Medication Instructions Recorded Confirmed Type PNV cmb#95-ferrous fumarate-FA 1 tablet PO DAILY 01/28/22 03/02/22 History [] fluoxetine 40 mg PO DAILY 01/28/22 03/02/22 History nifedipine 30 mg PO BID 01/28/22 03/02/22 History Patient hx anesthesia problems: none Family hx anesthesia problems: none Results Review: All pre-operative results and documents have been reviewed as part of the pre-operative evaluation. PMFSH Past Medical History Medical History (Updated 08/16/20 @ 12:55 by Felton Hoover MD) Depression Obesity (BMI 35.0-39.9 without comorbidity) PIH ( induced hypertension) Family History Family History (Updated 03/06/22 @ 11:07 by Janice Serrano RN) Mother Family history of allergic disorder Family history of anemia Asthma Other Carcinoma of colon Malignant hyperthermia due to anesthesia Father Hypertension Social History Social History Smoking status: Never smoker Second hand tobacco smoke exposure: No Alcohol intake: current Substance use: never Spiritual care concerns: No Anes - Eval Final PreProcedure Day of Procedure 03/07/22 11:07 Patient weight: morbidly obese Heart: regular rate and rhythm Lungs: clear to auscultation and normal air movement Airway: Mallampati scale class II Neurological: alert and oriented Last oral intake: >/= 8 hours ASA classification: III Emergent: no Anesthetic plan: proceed Anesthesia type and monitoring: regional spinal and standard monitoring Results Review: All pre-operative results and documents have been reviewed as part of the pre-operative evaluation. Informed Consent: The patient's anesthetic plan and its attendant risks and benefits were discussed with the patient/family/POA. Questions were solicited and answers provided to the satisfaction of the patient/family/POA.
--- NOTE | 2022-03-07 12:03 | PM.IMHP ---
H&P: HPI History of Present Illness Date/Time: 03/07/22 12:03 31 y/o at 37 6/7 weeks with chronic HTN, worsening bp control. She takes Procardia XL 30 mg bid. GBS neg. Prior , desires repeat. Chief Complaint: Here for c section Review of Systems Review of Systems: All systems reviewed & are unremarkable except as noted in HPI and below PMFSH Past Medical History Medical History Depression Obesity (BMI 35.0-39.9 without comorbidity) PIH ( induced hypertension) Surgical History Surgical History (Updated 03/07/22 @ 12:06 by Felton Hoover MD) History of delivery History of cholecystectomy Family History Family History Mother Family history of allergic disorder Family history of anemia Asthma Other Carcinoma of colon Malignant hyperthermia due to anesthesia Father Hypertension Social History Social History Smoking status: Never smoker Second hand tobacco smoke exposure: No Alcohol intake: current Substance use: never Spiritual care concerns: No Meds Home Medications and Allergies Home Medications Medication Instructions Recorded Confirmed Type PNV cmb#95-ferrous fumarate-FA 1 tablet PO DAILY 01/28/22 03/07/22 History [] fluoxetine 40 mg PO DAILY 01/28/22 03/07/22 History nifedipine 30 mg PO BID 01/28/22 03/07/22 History Allergies Allergy/AdvReac Type Severity Reaction Status Date / Time diphenhydramine Allergy Severe Hives Verified 03/06/22 11:05 succinylcholine Allergy Severe MALIGNANT Verified 03/06/22 11:05 HYPERTHERMIA Vital Signs Vital Signs - 24 hr 03/07/22 10:27 03/07/22 11:09 03/07/22 11:31 Pulse Rate 112 H 93 77 Blood Pressure 159/104 H 152/96 H 142/84 H 03/07/22 11:46 Pulse Rate 76 Blood Pressure 138/79 Exam Const: Orientation/consciousness: patient oriented x3 Other: Well-developed, well-nourished female in no acute distress. Neck: Thyroid: thyroid normal Lymphatic: no lymphadenopathy noted (in neck, axilla or inguinal nodes) Resp: Effort & Inspection: normal respiratory effort Auscultation: clear to auscultation bilaterally Cardio: Rate: regular rate Rhythm: regular rhythm Heart sounds: S1 normal heart sound present and S2 normal heart sound present GI: Other: ABD: Soft, nontender, nondistended, gravid. NST reactive. TOCO: rare contractions. : General: Yes no CVA tenderness Other: Cervix closed / thick Back/Spine/Pelvis: Back: no CVA tenderness Skin: General skin exam: normal color and no rashes or lesions noted Neuro: General: patient oriented x3 Extrem: Other: Extremities: nontender with no edema Psych: Mental Status: mental status grossly normal Affect: normal affect Assessment and Plan Assessment and plan (1) History of delivery: Code(s): Z98.891 - History of uterine scar from previous surgery Status: Acute Assessment and Plan: A: IUP at 37 6/7 weeks with chronic HTN, worsening bp control, prior , desires repeat. P: Offered repeat LTCS. She understands risks of surgery to include risks of anesthesia, risks of pain, infection, bleeding, blood products, thromboembolic phenomena and damage to adjacent structures such as bowel, bladder, ureters, blood vessels and nerves. She understands all these risks and elects to proceed with surgery.
--- NOTE | 2022-03-07 12:08 | WPDHPUPDATE1 ---
History and Physical Update Update Date/Time: 03/07/22 12:08 History and Physical has been reviewed, including an updated exam of the patient. There are NO changes in the patient's condition. Risks, benefits, and alternatives have been discussed and questions answered. Patient agrees to proceed with procedure.
--- NOTE | 2022-03-07 13:43 | PM.OBPRVD ---
OB - Delivery Note Procedure Procedure: Procedures Operation Date: 03/07/22 12:00 <No data on this case meets the specified criteria> Repeat low transverse delivery Events: Chronic Hypertension and Previous Delivery Induction method: None Delivery monitor: External FHT and External Uterine Route of delivery: (Repeat LTCS) Specimen: Yes (cord blood, placenta) Quantitative Blood Loss (ml): 785 Anesthesia type: Spinal Disposition: PACU Complications: None Narrative: The patient was taken to the operating room where she was prepared and draped in the usual sterile fashion in dorsal supine position with a leftward tilt. She received cefazolin preoperatively. Spinal anesthesia was found to be adequate. A Pfannenstiel skin incision was made along the previous scar line and was carried through to the underlying layer of the fascia. The fascia was incised in the midline and the incision was extended laterally. The fascia was dissected free of the underlying rectus muscles. The rectus muscles were in the midline. The peritoneum was identified, tented up and entered sharply. The peritoneal incision was extended superiorly and inferiorly with good visualization of the bladder. The bladder blade was placed. The vesicouterine peritoneum was identified, tented up and entered sharply. The incision was extended laterally and the bladder flap was developed. The bladder blade was replaced. The uterus was then incised sharply in a transverse fashion along the lower uterine segment. The incision was extended laterally. The 's head was delivered atraumatically to the sterile field, followed by the body. The nose and mouth were bulb suctioned. After a delay, the cord was clamped and cut. The was handed off the field. Cord blood was collected. The placenta was removed manually and was passed off the field. The uterus was exteriorized and cleared of all clots and debris. The uterine incision was reapproximated using 0 Monocryl in a running, locked fashion. A second, imbricating layer of the same suture was run. Excellent hemostasis resulted as did excellent reapproximation of the normal anatomy. The uterus was returned the abdomen. The pelvis was irrigated copiously with warmed normal saline. Hemaderm was applied to the bladder flap. Rigorous hemostasis was assured. The fascial layer was reapproximated using 0 Vicryl in a running fashion. Interrupted figure of eight sutures of 2-0 Chromic were placed to reapproximate the subcutaneous tissue. The skin was closed with a running, subcuticular stitch of 4 0 Vicryl. Dermaflex was applied externally. Sponge, lap, needle and instrument counts were correct. The patient was taken to the recovery room in stable condition. The infant went to the nursery in stable condition. I was present and scrubbed the entire procedure. Baby Date of : 03/07/22 Time of : 12:49 Weeks of gestation at delivery: 37 gender: Female Weight (pounds): 6 Weight (ounces): 15 presentation: vertex Placenta delivery description: Manual Removal and Normal Configuration Cord Vessel Description: 3 Vessels and Delayed Cord Clamping score one minute: 7 score five minutes: 8
--- NOTE | 2022-03-07 13:46 | PM.OBDSVD ---
DS: Admitting Diagnosis Discharge Date 03/09/22 Admitting Diagnosis IUP at 37 6/7 weeks Chronic HTN with worsening bp control Prior DS: Discharge Diagnosis Discharge Diagnosis (1) History of delivery: Code(s): Z98.891 - History of uterine scar from previous surgery Status: Acute (2) Chronic hypertension affecting : Code(s): O10.919 - Unspecified pre-existing hypertension complicating , unspecified trimester Status: Acute (3) Term : Code(s): Z34.90 - Encounter for supervision of normal , unspecified, unspecified trimester Status: Acute OB - DS: Summary OB Procedures : PIH Mgmt OB Procedures Intrapartum: OB Procedures: : None Peripartum Data Procedures: Procedures Operation Date: 03/07/22 12:00 <No data on this case meets the specified criteria> Repeat LTCS Discharge Plan Discharge Attending physician on discharge: Felton Hoover Consulting providers: Nolberto Parker Discharging Clinician: Felton Hoover Patient Disposition: Home, Self-Care Activity: may shower, may drive after 2 weeks and pelvic rest Diet: regular Wound Care Instructions: incision open to air Discharge Instructions: Education: Mom and Baby Guide Given to: Mother Follow-Up: Call your delivering provider's office for an appointment to be seen in: 1 week for BP check; schedule follow up for 4 weeks BREAST CARE: * Wear a snug supportive bra. * For engorgement discomfort: Breast Feeding: * Apply warm moist washcloths * Express milk as needed to relieve engorgement * Wear loose clothing * For sore nipples: * Identify correct latch-on * Apply warm moist washcloths before and after nursing * Air dry nipples after nursing * May apply Lansinoh cream to nipples ABDOMINAL INCISION: (if applicable) * Allow incision to air dry * Do NOT use lotions for powders on your incision * When showering, allow soap and water to run over the incision, but do not wash incision EPISIOTOMY/PERINEAL CARE: * Change your pad frequently throughout the day * You may take sitz baths several times a day (fill your bathtub with warm water and soak for 20 minutes.) Do NOT bathe in the water * No tub baths until seen by your physician - You may shower ACTIVITY: * Rest as much as possible. * Do not exercise or lift anything heavier than your baby (such as laundry or other children.) * Avoid stairs or driving as much as possible. * Do not put anything into the vagina. No douching, tampons, or sexual activity until seen by physician. NOTIFY PHYSICIAN IF YOU HAVE ANY QUESTIONS OR IF ANY OF THE FOLLOWING SYMPTOMS OCCUR: * If your incision becomes red, swollen, or more painful than what you have experienced in the hospital. * If your vaginal bleeding becomes foul smelling. * If your vaginal bleeding becomes more heavy than a period or if your bleeding changes from pink to bright red. However, you may pass an occasional walnut-sized clot once or twice for the first week . * If you experience a sharp, shooting pain in you calves. * If you discover a hard, reddened area on your breast or if you experience flu-like symptoms. DIET: * Eat regular, well-balanced meals. * Drink plenty of fluids daily. If , drink to thirst. Call or return if temperature above 100.4? F, increased abdominal pain, increased vaginal bleeding or any new problems. Stand Alone Forms: General Discharge Information Follow-up/Referrals: Felton Hoover MD [Physician] - 4 Weeks Discharge Medications: New ibuprofen 600 mg tablet 600 mg PO Q6H PRN (Reason: cramps) Qty: 30 RF: 0 nifedipine [Procardia XL] 30 mg tablet extended release 24 hr 60 mg PO DAILY Qty: 30 RF: 1 hydrocodone-acetaminophen 5-325 mg tablet 1 -
[2022-03-07] MEDS: KETOROLAC 30 MG/ML VIAL (*BKC) 15 MG IV PUSH (13:57)
[2022-03-07] MEDS: OXYTOCIN 30 UNITS/NS 500 ML 30 UNITS/500 ML BAG 125 UNITS IV CONT (14:09)
[2022-03-07] MEDS: KETOROLAC 30 MG/ML VIAL (*BKC) IV PUSH (18:35)
[2022-03-07] MEDS: SIMETHICONE 80 MG TAB.CHEW PO (18:36)
[2022-03-07] MEDS: HYDROcodone/acetaminophen (*CRX) 5-325 MG TABLET 1 TAB PO (18:36)
[2022-03-07] MEDS: DOCUSATE SODIUM 100 MG CAPSULE PO (18:36)
[2022-03-07] MEDS: DEXTROSE 5%/0.45% SOD CHL 1,000 ML 125 ML IV CONT (19:06)
[2022-03-07] MEDS: LABETALOL HCL 100 MG TABLET 200 MG PO (19:07)
[2022-03-08] MEDS: SIMETHICONE 80 MG TAB.CHEW PO ×4 (01:31→23:05)
[2022-03-08] MEDS: IBUPROFEN 600 MG TABLET PO ×4 (01:31→23:00)
[2022-03-08] MEDS: HYDROcodone/acetaminophen (*CRX) 5-325 MG TABLET 1 TAB PO ×4 (01:32→23:00)
[2022-03-08 04:20] VITALS: BP 157/82; PULSE 74; RESP 18; TEMP 36.2; O2SAT 99
[2022-03-08 05:49] LABS: Basophils Percent Auto 0.2 % (0.2-1.2); Eosinophils Percent Auto 0.3 % (0-4.4); Hemoglobin 9.1 g/dL (12.0-15.0); Immature Granulocyte Absolute 0.06 K/mm3 (0.00-0.031); Immature Granulocyte Percent A 0.5 % (0-0.5); Lymphocytes Absolute Auto 1.49 K/mm3 (0.9-3.2); Lymphocytes Percent Auto 11.6 % (18.3-44.2); Mean Corpuscular HGB Conc 31.4 g/dl (32-36); Mean Corpuscular Hemoglobin 28.1 pg (26-34); Mean Corpuscular Volume 89.5 fl (80-100); Monocytes Absolute Auto 0.7 K/mm3 (0.1-0.6); Monocytes Percent Auto 5.7 % (2.6-8.5); Neutrophils Absolute Auto 10.5 K/mm3 (1.3-6.7); Neutrophils Percent Auto 81.7 % (45.5-73.1); Platelet Count Result 237 k/mm3 (150-375); Red Blood Count 3.24 M/mm3 (4.2-5.4); Red Cell Distribution Width 12.9 % (11.5-14.5); White Blood Count 12.8 K/mm3 (4.5-10.0)
[2022-03-08 07:50] VITALS: BP 166/98; PULSE 69; RESP 18; TEMP 36.8; O2SAT 100
[2022-03-08 08:00] VITALS: PULSE 69; RESP 18; O2SAT 100
--- NOTE | 2022-03-08 08:55 | PM.OBPNVD ---
OB - PN: Subj Subjective Date/time seen: 03/08/22 08:55 Narrative: Pain OK. Tolerating diet. Baby was transferred to [facility], but is reportedly doing better. Got a dose of labetalol overnight for elevated bp. OB - PN: Obj Data Labs CBC & Chem 7: 03/08/22 04:06 Labs: Laboratory Results - last 24 hr 03/08/22 03/08/22 04:06 04:06 WBC 12.8 H RBC 3.24 L Hgb 9.1 L Hct 29.0 L MCV 89.5 MCH 28.1 MCHC 31.4 L RDW 12.9 Plt Count 237 MPV 12.0 H Immature Gran % (Auto) 0.5 Neut % (Auto) 81.7 H Lymph % (Auto) 11.6 L [place] % (Auto) 5.7 Eos % (Auto) 0.3 Baso % (Auto) 0.2 Lymph # (Auto) 1.49 [place] # (Auto) 0.7 H Eos # (Auto) 0.0 Baso # (Auto) 0.0 Abs Immat Gran (auto) 0.06 H Absolute Neuts (auto) 10.5 H Absolute Nucleated RBC 0.0 Nucleated RBC % 0.0 Blood Type A Negative Antibody Screen Negative Screen Negative Baby's Blood Type A pos Baby's CHUCK Negative Doses of RhIg Required 1 OB - PN A/P Plan Comments: A: POD#1, doing well. Some elevated bp. P: Routine care. Needs Rhogam. May go on pass to see baby today. Plan home tomorrow. Exam Narrative: AVSS I/O OK ABD soft, nontender, fundus firm. Incision c/d/i. EXT nontender
[2022-03-08] MEDS: FLUoxetine HCL 20 MG CAPSULE 40 MG PO (09:21)
[2022-03-08] MEDS: MULTIVIT/MIN/PREN/FOL AC/IRON TABLET 1 TAB PO (09:22)
[2022-03-08] MEDS: DOCUSATE SODIUM 100 MG CAPSULE PO ×2 (09:22→16:55)
[2022-03-08] MEDS: POLYSACCHARIDE IRON COMPLEX 150 MG CAPSULE PO ×2 (09:23→16:55)
[2022-03-08] MEDS: NIFEdipine 30 MG TAB.ER.24 60 MG PO (09:24)
--- NOTE | 2022-03-08 09:45 | PC.NURSE ---
[id number] Introductions were made, then consulted with patient to assess needs related to . Mother led the conversation with her experience feeding her so far and that she started pumping last night after infant was transferred to [facility]. Breast pump provided last night due to separation from her . Reviewed instructions on cleaning, care, usage, there should be no pain, pumping schedule for milk production, collection, and storage of human milk. Parents are encouraged to record pumping schedule on the feeding sheet. Patient was assessed for correct placement, flange size, to pump for comfort and nipple stretching/stimulation for adequate milk production. Resources used to facilitate learning were used with the mom and baby guide. Parents voiced understanding of education given. Reported to the primary RN.
--- NOTE | 2022-03-08 10:20 | WPDANLDPN2 ---
Anes-Prog Note L&D Date/Time: 03/08/22 10:20 Comfortable throughout: section Neuraxial method: spinal Epidural/Spinal procedure site: clean & non-tender Neuro status: Neuro function grossly intact. Cardiovascular status: normal Respiratory status: normal Airway patency: baseline Mental status: baseline Post-Op hydration status: normal Vital Signs: Last Vital Signs Temp 36.8 C 03/08/22 07:50 Pulse 69 03/08/22 07:50 Resp 18 03/08/22 07:50 BP 166/98 H 03/08/22 07:50 Pulse Ox 100 03/08/22 07:50 Pain score (VAS): 3 I/O: Intake & Output 03/07/22 03/08/22 03/08/22 23:59 07:59 15:59 Intake Total 1400 Output Total 2000 500 Balance -600 -500 Post-procedural complaints: none Patient feedback: Patient satisfied with anesthetic care.
--- NOTE | 2022-03-08 10:21 | WPDANLDNPN2 ---
Anes-Prog Note L&D-Neuraxial Date/Time: 03/08/22 10:21 Neuraxial medications: intrathecal PF morphine Opiod-related complaints: none Patient feedback: Patient satisfied with post-operative pain management.
[2022-03-08 11:50] VITALS: BP 143/92; PULSE 74; RESP 18; TEMP 36.7; O2SAT 100
--- NOTE | 2022-03-08 12:42 | PC.NURSE ---
1215-Patient left hospital via wheelchair on a 4 hr. pass to [facility] to see baby that was transferred.
--- NOTE | 2022-03-08 16:50 | PC.NURSE ---
[id number]-Patient returned via wheelchair from 4 hr. pass to see baby at [facility].
[2022-03-08 19:00] VITALS: BP 150/95; PULSE 87; RESP 18; TEMP 36.8
[2022-03-08 23:00] VITALS: BP 158/90; PULSE 83; RESP 18; TEMP 36.9
[2022-03-09 04:30] VITALS: BP 157/90; PULSE 78; RESP 18; TEMP 37.1
[2022-03-09] MEDS: IBUPROFEN 600 MG TABLET PO (05:00)
[2022-03-09] MEDS: SIMETHICONE 80 MG TAB.CHEW PO (05:00)
[2022-03-09] MEDS: HYDROcodone/acetaminophen (*CRX) 5-325 MG TABLET 1 TAB PO ×2 (05:01→09:18)
[2022-03-09] MEDS: RHO(D) IMMUNE GLOBULIN 300 MCG/2 ML SYRINGE IM (05:04)
[2022-03-09 08:00] VITALS: PULSE 81; RESP 18; O2SAT 100
[2022-03-09 08:28] VITALS: BP 175/99; PULSE 81; RESP 18; TEMP 36.7
[2022-03-09] MEDS: FLUoxetine HCL 20 MG CAPSULE 40 MG PO (09:14)
[2022-03-09] MEDS: MULTIVIT/MIN/PREN/FOL AC/IRON TABLET 1 TAB PO (09:16)
[2022-03-09] MEDS: DOCUSATE SODIUM 100 MG CAPSULE PO (09:16)
[2022-03-09] MEDS: NIFEdipine 30 MG TAB.ER.24 60 MG PO (09:18)
[2022-03-09] MEDS: POLYSACCHARIDE IRON COMPLEX 150 MG CAPSULE PO (09:18)
--- NOTE | 2022-03-09 12:08 | PC.NURSE ---
Clarified with doctor that patient does not need to be seen in our follow up office in 2 days; patient will be following up in office for BP check in a week.
== END 2022-03-09 12:00 | disposition home or self-care (01) | DRG 787 ==
LOC: ANHLDR 13:48 → ANHOB2 03-09 10:27 → ANHLDR 03-12 09:45 → ANHOB2 03-12 09:45
PROVIDERS: Admitting Provider Obstetrics & Gynecology; Visit Provider Student in an Organized Health Care Education/Training Program
PROC: 10D00Z1 Extraction of Products of Conception, Low, Open Approach (ICD-10-PCS; CPT 59514; principal; 2022-03-07 12:00)
DX: O34.211 Maternal care for low transverse scar from previous cesarean delivery (principal); O10.92 Unspecified pre-existing hypertension complicating childbirth; Z37.0 Single live birth; Z3A.37 37 weeks gestation of pregnancy
CPT/HCPCS: 36415; 85025; 85461; 88307; 90384; A9270; J0131; J0690; J1885; J2274; J2370; J2405; J2590; J2790; J7120

== ENCOUNTER 2024-07-06 11:38 | Outpatient (RCR) | payer OTHER, SELFPAY ==
[2024-07-06] MEDS: RHO(D) IMMUNE GLOBULIN 300 MCG/2 ML SYRINGE IM (17:06)
== END 2024-10-04 23:59 | disposition home or self-care (01) ==
LOC: ANHLAB 11:38
PROVIDERS: Visit Provider Obstetrics & Gynecology
DX: Z29.13 Encounter for prophylactic Rho(D) immune globulin (principal)
CPT/HCPCS: 36415; 85461; 86850; 86900; 86901; 90384; 96372; J2790

== ENCOUNTER 2024-07-24 09:02 | Outpatient (CLI) | payer OTHER, SELFPAY ==
[2024-07-24] VITALS (7 sets, daily range): BP systolic 150–182; BP diastolic 81–106; PULSE 102–117; BMI 41.1
--- NOTE | 2024-07-24 09:42 | PC.NURSE ---
Dr. Hoover returned page and informed or pt 's 2 severe BP's during NST. Pt denies headache, visual disturbance, epigastric/RUQ pain. No edema and normal reflexes. FHT's reactive. Pt had Procardia 30 XL at 0730 this morning. Orders received for labs and Procardia 10 mg po now.
[2024-07-24] MEDS: NIFEdipine 10 MG CAPSULE PO (10:10)
[2024-07-24 10:30] LABS: Add Urine Microscopic? NO; Appearance Urine Clear (Clear); Bilirubin Urine Negative (Negative); Blood Urine Negative (Negative); Color Urine Yellow (Yellow); Glucose Urine UA Negative (Negative); Ketones Urine Negative (Negative); Leukocyte Esterase Ur Negative LEU/UL (Negative); Nitrate Urine Negative (Negative); Protein Urine Negative (Negative); Specific Grav Ur 1.004 (1.001-1.035); Urobilinogen Urine 0.2 mg/dL (<2.0)
[2024-07-24 10:32] LABS: Basophils Percent Auto 0.3 % (0.2-1.2); Eosinophils Percent Auto 0.3 % (0-4.4); Hematocrit 35.5 % (37.0-47.0); Hemoglobin 11.8 g/dL (12.0-15.0); Immature Granulocyte Absolute 0.08 K/mm3 (0.00-0.031); Immature Granulocyte Percent A 0.7 % (0-0.5); Lymphocytes Absolute Auto 1.39 K/mm3 (0.9-3.2); Lymphocytes Percent Auto 12.2 % (18.3-44.2); Mean Corpuscular HGB Conc 33.2 g/dl (32-36); Mean Corpuscular Hemoglobin 30.3 pg (26-34); Mean Platelet Volume 10.6 fl (7.4-10.4); Monocytes Absolute Auto 0.5 K/mm3 (0.1-0.6); Monocytes Percent Auto 4.1 % (2.6-8.5); Neutrophils Absolute Auto 9.4 K/mm3 (1.3-6.7); Neutrophils Percent Auto 82.4 % (45.5-73.1); Platelet Count Result 252 k/mm3 (150-375); Red Cell Distribution Width 12.9 % (11.5-14.5); White Blood Count 11.4 K/mm3 (4.5-10.0)
[2024-07-24 10:35] LABS: Creatinine Urine 17.2 mg/dL; Total Protein Urine Random 15 mg/dL; Ur Ttl Prot Creatinine Ratio 0.87 mg/mg (0-0.20)
--- NOTE | 2024-07-24 10:38 | PC.NURSE ---
Dr. Hoover returned page and informed pt received the Procardia 10 about 28 mins ago and her BP is still 172/103. Order received for an additional Procardia 10 mg po.
--- NOTE | 2024-07-24 10:43 | PC.NURSE ---
When I entered room to give the Procardia, pt had tilted in the chair to her left side for comfort. Declines moving into the bed. BP was 154/81. Instructed pt that I needed her to go back to sitting upright for a minute to make sure her BP wasn't falsely lowered due to her tilt position.
[2024-07-24 10:45] LABS: Alanine Aminotransferase 20 U/L (6-35); Albumin Level 3.5 g/dL (3.5-5.1); Alkaline Phosphatase 100 U/L (38-126); Anion Gap 8 mmol/L (4-12); Aspartate Amino Transferase 31 U/L (14-36); Bilirubin,Total 0.3 mg/dL (0.2-1.3); Blood Urea Nitrogen 13 mg/dL (7-17); Calcium 8.9 mg/dL (8.4-10.2); Carbon Dioxide 21 mmol/L (22-30); Chloride 105 mmol/L (98-107); Estimated CRCL calculation 151 ml/min; Estimated Glomerular Filt Rate > 60; Glucose 106 mg/dL (65-110); Potassium 4.1 mmol/L (3.4-5.0); Sodium 134 mmol/L (137-145); Uric Acid 5.3 mg/dL (2.5-7.5)
--- NOTE | 2024-07-24 10:45 | PC.NURSE ---
Repeat BP with pt sitting up was 158/87. Extra dose of Procardia held for now.
--- NOTE | 2024-07-24 11:17 | PC.NURSE ---
Dr. Hoover on unit and updated on lab results, BP's, 2nd dose of Procardia not given. reviewed tracing per central monitor display. Order received to discharge pt to home. Pt to take an additional Procardia 30 XL when she gets home and then starting tomorrow morning she is to take two 30 mg tablets to equal 60 mg daily.
--- NOTE | 2024-07-24 11:18 | PC.NURSE ---
Pt given instructions to take another dose of her Procardia 30 mg XL when she gets home today and then to increase her morning dose to two 30 mg tablets daily to equal Procardia 60 mg XL daily. Repeat NST and BP check scheduled for Saturday.
== END 2024-07-24 11:18 | disposition home or self-care (01) ==
LOC: ANHOBOP 09:59 → ANHLDR 10:00
PROVIDERS: Visit Provider Obstetrics & Gynecology
DX: O13.9 Gestational [pregnancy-induced] hypertension without significant proteinuria, unspecified trimester (principal)
CPT/HCPCS: 36415; 59025; 80053; 81003; 82570; 84156; 84550; 85025; 99199; A9270

== ENCOUNTER 2024-07-29 07:34 | Outpatient (CLI) | payer OTHER, SELFPAY ==
[2024-07-29] VITALS (10 sets, daily range): BP systolic 157–171; BP diastolic 89–103; PULSE 92–127; BMI 41.3
--- NOTE | 2024-07-29 08:26 | PC.NURSE ---
Dr. Hoover returned page and informed pt here for NST for gestational hypertension with severe range BP's. Pt also reports having white coat syndrome and gave me a list of her BP's from home since her last NST. Pt states she also changed her BP cuff at home. The BP's pt reported were 137/76, 129/85, 136/81, 134/86, and 127/88. Pt had her Procardia XL 60 mg this morning at 0630. Pt denies headache, visual disturbance, epigastric/RUQ pain. NST not reactive yet. MD CHAVARRIA with discharging pt after NST becomes reactive.
--- NOTE | 2024-07-29 08:42 | PC.NURSE ---
Dr. Hoover returned page and informed that while waiting for NST to become reactive, her next BP was 170/105- pt states her legs were crossed- repeated 5 mins later and was 171/100. Discussed not comfortable sending her home with current BP's. Order received to give Procardia 10 mg PO. doesn't want labs repeated. Pt to be seen in office this week.
[2024-07-29] MEDS: NIFEdipine 10 MG CAPSULE PO (08:54)
--- NOTE | 2024-07-29 10:20 | PC.NURSE ---
Dr. Hoover returned page and informed last 2 BP's were 157/93 and 158/89 - 1 hr and 25 mins after Procardia 10 mg PO dose. Order received to discharge pt and have her complete 24 hr urine at home. Continue to monitor BP's at home and call to office Saturday morning.
--- NOTE | 2024-07-29 10:53 | PC.NURSE ---
Dr. Hoover returned page and informed that an additional BP was taken before I could discharge pt and that BP was 162/94. Two BP's were repeated in the next 15 mins that were 166/94 and now 158/97. Order received to give pt another Procardia 30 XL now and then discharge pt to home. MD doesn't want any further BP's or monitoring done.
--- NOTE | 2024-07-29 11:08 | PC.NURSE ---
Dr. Hoover returned page and informed that when I was discussing with pt that she is to increase her Procardia XL to 90 mg every morning, that when she received her refill for the Procardia XL 30 mg the directions were to take 30 mg twice a day, but she knew she had been instructed to take all 60 mg in the morning. Pt wondering if since now her dose has increased to 90 mg daily if she should divide the dose. Dr. Hoover is fine with pt taking 60mg in the morning and 30 mg at night.
[2024-07-29] MEDS: NIFEdipine 30 MG TAB.ER.24 PO (11:16)
--- NOTE | 2024-07-29 11:17 | PC.NURSE ---
Pt sent home with 24 hr urine supplies, warning signs of preeclampsia to watch for, pt to start Procardia 60 mg po in the morning and 12 hrs later Procardia 30 mg po daily. Pt to call MD on Saturday with BP's; to call sooner if any BP's at home are > or = to 160/100. Recommended pt bring her BP monitor with her next visit so we can verify it's accuracy with our monitor. Pt verbalizes understanding.
== END 2024-07-29 11:17 | disposition home or self-care (01) ==
LOC: ANHOBOP 08:53
PROVIDERS: Visit Provider Obstetrics & Gynecology
DX: O13.9 Gestational [pregnancy-induced] hypertension without significant proteinuria, unspecified trimester (principal); Z3A.00 Weeks of gestation of pregnancy not specified
CPT/HCPCS: 59025; A9270

== ENCOUNTER 2024-07-30 11:17 | Outpatient (CLI) | payer OTHER, SELFPAY ==
[2024-07-30 11:31] VITALS: BMI 41.3
[2024-07-30 11:45] LABS: Basophils Percent Auto 0.2 % (0.2-1.2); Eosinophils Percent Auto 0.2 % (0-4.4); Hematocrit 34.2 % (37.0-47.0); Hemoglobin 11.6 g/dL (12.0-15.0); Immature Granulocyte Absolute 0.08 K/mm3 (0.00-0.031); Immature Granulocyte Percent A 0.7 % (0-0.5); Lymphocytes Absolute Auto 1.48 K/mm3 (0.9-3.2); Lymphocytes Percent Auto 12.2 % (18.3-44.2); Mean Corpuscular HGB Conc 33.9 g/dl (32-36); Mean Corpuscular Hemoglobin 30.4 pg (26-34); Mean Corpuscular Volume 89.5 fl (80-100); Mean Platelet Volume 10.4 fl (7.4-10.4); Monocytes Absolute Auto 0.7 K/mm3 (0.1-0.6); Monocytes Percent Auto 5.6 % (2.6-8.5); Neutrophils Absolute Auto 9.9 K/mm3 (1.3-6.7); Neutrophils Percent Auto 81.1 % (45.5-73.1); Platelet Count Result 279 k/mm3 (150-375); Red Blood Count 3.82 M/mm3 (4.2-5.4); Red Cell Distribution Width 12.7 % (11.5-14.5); White Blood Count 12.2 K/mm3 (4.5-10.0)
[2024-07-30 12:13] LABS: Alanine Aminotransferase 19 U/L (6-35); Albumin Level 3.5 g/dL (3.5-5.1); Alkaline Phosphatase 116 U/L (38-126); Anion Gap 7 mmol/L (4-12); Aspartate Amino Transferase 26 U/L (14-36); Bilirubin,Total 0.2 mg/dL (0.2-1.3); Blood Urea Nitrogen 14 mg/dL (7-17); Calcium 9.1 mg/dL (8.4-10.2); Carbon Dioxide 20 mmol/L (22-30); Chloride 104 mmol/L (98-107); Estimated CRCL calculation 132 ml/min; Estimated Glomerular Filt Rate > 60; Glucose 96 mg/dL (65-110); Potassium 3.9 mmol/L (3.4-5.0); Sodium 131 mmol/L (137-145); Uric Acid 6.1 mg/dL (2.5-7.5)
[2024-07-30 12:44] LABS: Collection Time Urine 24 HOURS
[2024-07-30 12:46] LABS: Patient Weight 263 Lbs
[2024-07-30 12:47] LABS: Total Volume 24 Hour Urine 2200 ml
[2024-07-30 12:48] LABS: Total Volume 24 Hour Urine 2200 ml
[2024-07-30 13:04] LABS: Creatinine Urine 77.4 mg/dL
[2024-07-30 13:14] LABS: Total Protein Urine 24 Hr 198 mg/24hr (28-141); Total Protein Urine Random 9 mg/dL
[2024-07-30 13:31] LABS: Creatinine Clearance Urine 129.1 ml/min (75-125); Serum Creat 0.7
== END 2024-07-30 11:18 | disposition home or self-care (01) ==
LOC: ANHOBOP 11:24
PROVIDERS: Visit Provider Obstetrics & Gynecology
DX: O13.9 Gestational [pregnancy-induced] hypertension without significant proteinuria, unspecified trimester (principal); Z3A.00 Weeks of gestation of pregnancy not specified
CPT/HCPCS: 36415; 59025; 80053; 81050; 82575; 84156; 84550; 85025; A9270

== ENCOUNTER 2024-08-19 07:46 | Outpatient (RCR) | payer OTHER, SELFPAY ==
[2024-08-11 08:36] LABS: Basophils Percent Auto 0.3 % (0.2-1.2); Eosinophils Percent Auto 0.4 % (0-4.4); Hematocrit 38.2 % (37.0-47.0); Hemoglobin 12.9 g/dL (12.0-15.0); Immature Granulocyte Absolute 0.04 K/mm3 (0.00-0.031); Immature Granulocyte Percent A 0.4 % (0-0.5); Lymphocytes Absolute Auto 1.53 K/mm3 (0.9-3.2); Lymphocytes Percent Auto 13.9 % (18.3-44.2); Mean Corpuscular HGB Conc 33.8 g/dl (32-36); Mean Corpuscular Hemoglobin 30.4 pg (26-34); Mean Corpuscular Volume 90.1 fl (80-100); Mean Platelet Volume 10.7 fl (7.4-10.4); Monocytes Absolute Auto 0.4 K/mm3 (0.1-0.6); Monocytes Percent Auto 3.4 % (2.6-8.5); Neutrophils Percent Auto 81.6 % (45.5-73.1); Platelet Count Result 245 k/mm3 (150-375); Red Blood Count 4.24 M/mm3 (4.2-5.4)
[2024-08-11 08:56] VITALS: BP 146/96; PULSE 115
[2024-08-11 09:02] LABS: Alanine Aminotransferase 17 U/L (6-35); Albumin Level 3.9 g/dL (3.5-5.1); Alkaline Phosphatase 146 U/L (38-126); Anion Gap 9 mmol/L (4-12); Aspartate Amino Transferase 26 U/L (14-36); Bilirubin,Total 0.4 mg/dL (0.2-1.3); Blood Urea Nitrogen 11 mg/dL (7-17); Calcium 8.9 mg/dL (8.4-10.2); Carbon Dioxide 22 mmol/L (22-30); Chloride 103 mmol/L (98-107); Estimated Glomerular Filt Rate > 60; Glucose 119 mg/dL (65-110); Potassium 3.4 mmol/L (3.4-5.0); Sodium 134 mmol/L (137-145); Uric Acid 6.3 mg/dL (2.5-7.5)
[2024-08-19 08:29] VITALS: BP 171/95; PULSE 110
== END 2024-09-28 09:37 | disposition home or self-care (01) ==
LOC: ANHOBOP 07:46
PROVIDERS: Visit Provider Obstetrics & Gynecology
DX: O16.3 Unspecified maternal hypertension, third trimester (principal); Z3A.35 35 weeks gestation of pregnancy
CPT/HCPCS: 36415; 59025; 80053; 84550; 85025

== ENCOUNTER 2024-08-23 08:21 | Outpatient (RCR) | payer OTHER, SELFPAY ==
[2024-08-22] MEDS: BETAMETHASONE SOD PHOS/ACETATE 30 MG/5 ML VIAL 12 MG IM (08:16)
[2024-08-23] MEDS: BETAMETHASONE SOD PHOS/ACETATE 30 MG/5 ML VIAL 12 MG IM (08:26)
== END 2024-11-20 23:59 | disposition home or self-care (01) ==
LOC: ANHOBOP 08:21
PROVIDERS: Visit Provider Obstetrics & Gynecology
DX: O36.8990 Maternal care for other specified fetal problems, unspecified trimester, not applicable or unspecified (principal)
CPT/HCPCS: 96372; J0702

== ENCOUNTER 2024-08-26 08:57 | Outpatient (CLI) | payer OTHER, SELFPAY ==
[2024-08-26 09:33] LABS: Hematocrit 35.7 % (37.0-47.0); Hemoglobin 12.3 g/dL (12.0-15.0); Mean Corpuscular HGB Conc 34.5 g/dl (32-36); Mean Corpuscular Hemoglobin 30.7 pg (26-34); Mean Platelet Volume 11.4 fl (7.4-10.4); Platelet Count Result 251 k/mm3 (150-375); Red Blood Count 4.01 M/mm3 (4.2-5.4); Red Cell Distribution Width 12.8 % (11.5-14.5); White Blood Count 12.5 K/mm3 (4.5-10.0)
[2024-08-27 15:36] LABS: Rapid Plasma Reagin Non-Reactive (NonReactive)
== END 2024-08-26 08:58 | disposition home or self-care (01) ==
PROVIDERS: Visit Provider Obstetrics & Gynecology
DX: Z01.818 Encounter for other preprocedural examination (principal)
CPT/HCPCS: 36415; 85027; 86592; 86850; 86900; 86901

== ENCOUNTER 2024-08-27 10:00 | Inpatient (IN) | payer OTHER, SELFPAY ==
--- NOTE | 2024-08-15 14:26 | PC.NURSE ---
Patient states she is having a repeat C/S with tubal but it is not scheduled yet--Pre-op teaching done and lab requisition given to patient
[2024-08-27] VITALS (74 sets, daily range): BP systolic 94–184; BP diastolic 60–115; PULSE 51–86; RESP 12–18; TEMP 36.3–37.3; O2SAT 95–100; BMI 43.7
[2024-08-27] MEDS: ACETAMINOPHEN 500 MG TABLET 1000 MG PO (10:19)
[2024-08-27] MEDS: LACTATED RINGERS 1,000 ML 125 ML IV CONT ×3 (10:51→15:57)
--- NOTE | 2024-08-27 10:59 | LDADM ---
This patient, Ally Rodrigues, was admitted to Labor/Delivery/Recovery 120 on 08/27/24 at 10:00. Plans for section, pain management and were discussed with patient. Patient/family oriented to hospital policies and general routines including ID bracelet, bed and alarms, visiting hours, pain management, procedures, bathroom and other care routines, personal items, smoking policy, room service/diet and guest tray routines, security routines, and visiting hours. Patient/Family are encouraged to report perceived risks to care and to ask questions if they do not understand what they are told or what they should do. See OBIX for further documentation.
[2024-08-27 11:41] LABS: HIV 1/2 Ab P24 Ag Result Negative (Negative)
--- NOTE | 2024-08-27 11:58 | PM.IMHP ---
H&P: HPI History of Present Illness Date/Time: 08/27/24 11:58 Chief Complaint: Repeat Narrative: 33 y/o at 37 3/7 weeks here for scheduled repeat with concurrent bilateral salpingectomies. Chronic HTN with worsening bp control. She also has terrible white coat HTN, complicating bp monitoring. She had a course of betamethasone 4 days ago. Desires permanent contraception. Review of Systems Review of Systems: All systems reviewed & are unremarkable except as noted in HPI and below PMFSH Past Medical History Medical History Depression Obesity (BMI 35.0-39.9 without comorbidity) PIH ( induced hypertension) Surgical History Surgical History History of delivery History of cholecystectomy Family History Family History Mother Family history of allergic disorder Family history of anemia Asthma Other Carcinoma of colon Malignant hyperthermia due to anesthesia Father Hypertension Social History Social History Smoking status: Former smoker Second hand tobacco smoke exposure: No Additional smoking assessment comments: smoked a couple of years as a teenager Alcohol intake: current Substance use: never Do You Feel Safe in your Home?: Yes Lack of Transportation: No Lack of Food: Never True Current Housing: I Have Housing Concerned About Future Housing: No Difficulty Paying Gas/Electric Bills: No Difficulty Paying for Meds: No Currently Unemployed: No Education: Master's Degree or Higher Difficulty w/ Childcare or Family Care: No Spiritual care concerns: No Meds Home Medications and Allergies Home Medications Medication Instructions Recorded Confirmed Type vit no.95-ferrous 1 tablet PO DAILY 01/28/22 08/27/24 History fumarate 28 mg-folic acid 800 mcg tablet () aspirin 81 mg chewable tablet 81 mg PO DAILY 07/24/24 08/27/24 History fluoxetine 20 mg tablet 20 mg PO DAILY 07/24/24 08/27/24 History nifedipine 30 mg tablet,extended 60 mg PO DAILY 07/24/24 08/27/24 History release 24 hr (Procardia XL) Allergies Allergy/AdvReac Type Severity Reaction Status Date / Time diphenhydramine Allergy Severe Hives Verified 08/15/24 14:02 succinylcholine Allergy Severe MALIGNANT Verified 08/15/24 14:02 HYPERTHERMIA Vital Signs Vital Signs - 24 hr 08/27/24 10:58 08/27/24 10:54 08/27/24 10:56 Pulse Rate 82 80 Blood Pressure 164/96 H 174/93 H Oxygen Delivery Room Air 08/27/24 11:01 08/27/24 11:16 08/27/24 11:31 Pulse Rate 74 71 74 Blood Pressure 158/92 H 176/95 H 175/97 H Oxygen Delivery 08/27/24 11:46 08/27/24 10:55 Pulse Rate 73 82 Blood Pressure 184/90 H 164/96 H Oxygen Delivery Exam Const: Orientation/consciousness: patient oriented x3 Other: Well-developed, well-nourished female in no acute distress. Neck: Thyroid: thyroid normal Lymphatic: no lymphadenopathy noted (in neck, axilla or inguinal nodes) Resp: Effort & Inspection: normal respiratory effort Auscultation: clear to auscultation bilaterally Cardio: Rate: regular rate Rhythm: regular rhythm Heart sounds: S1 normal heart sound present and S2 normal heart sound present GI: Other: ABD: Soft, nontender, nondistended, gravid. NST reactive. TOCO: no contractions. No guarding or rebound tenderness. No hepatosplenomegaly. : General: Yes no CVA tenderness Other: Deferred. Back/Spine/Pelvis: Back: no CVA tenderness Skin: General skin exam: normal color and no rashes or lesions noted Neuro: General: patient oriented x3 Extrem: Other: Extremities: nontender with no edema Psych: Mental Status: mental status grossly normal Affect: normal affect Assessment
[2024-08-27] MEDS: FAMOTIDINE 20 MG/2 ML VIAL IV PUSH (12:05)
--- NOTE | 2024-08-27 12:05 | WPDHPUPDATE1 ---
History and Physical Update Update Date/Time: 08/27/24 12:05 History and Physical has been reviewed, including an updated exam of the patient. There are NO changes in the patient's condition. Risks, benefits, and alternatives have been discussed and questions answered. Patient agrees to proceed with procedure.
--- NOTE | 2024-08-27 12:06 | WPDANESEPPF ---
Anes - Initial Pre Proc Eval Procedure: Operation Date: 08/27/24 12:00 Proposed Procedures p Repeat Section with Bilateral Salpingectomy - Felton Hoover MD Date/Time: 08/27/24 12:06 Surgeon: Felton Hoover MD Pre Op Diagnosis: Repeat , sterilization Patient Data Age: 33 Gender: F Height: 1.68 m Weight: 123 kg Last Vital Signs Pulse 73 08/27/24 11:46 BP 184/90 H 08/27/24 11:46 O2 Del Method Room Air 08/27/24 10:58 Allergies Allergy/AdvReac Type Severity Reaction Status Date / Time diphenhydramine Allergy Severe Hives Verified 08/15/24 14:02 succinylcholine Allergy Severe MALIGNANT Verified 08/15/24 14:02 HYPERTHERMIA Home Medications Medication Instructions Recorded Confirmed Type vit no.95-ferrous 1 tablet PO DAILY 01/28/22 08/27/24 History fumarate 28 mg-folic acid 800 mcg tablet () aspirin 81 mg chewable tablet 81 mg PO DAILY 07/24/24 08/27/24 History fluoxetine 20 mg tablet 20 mg PO DAILY 07/24/24 08/27/24 History nifedipine 30 mg tablet,extended 60 mg PO DAILY 07/24/24 08/27/24 History release 24 hr (Procardia XL) Laboratory Tests 08/27/24 10:42 Sodium Pending Potassium Pending Chloride Pending Carbon Dioxide Pending Anion Gap Pending BUN Pending Creatinine Pending Estim Creat Clear Calc Pending Estimated GFR Pending Glucose Pending Calcium Pending Total Bilirubin Pending AST Pending ALT Pending Alkaline Phosphatase Pending Total Protein Pending Albumin Pending HIV 1&2 Ab/P24 Ag 4thGn Negative (Negative) Patient hx anesthesia problems: 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 ) Family hx anesthesia problems: none Results Review: All pre-operative results and documents have been reviewed as part of the pre-operative evaluation. [facility] Past Medical History Medical History Depression Obesity (BMI 35.0-39.9 without comorbidity) PIH ( induced hypertension) Surgical History Surgical History History of delivery History of cholecystectomy Family History Family History Mother Family history of allergic disorder Family history of anemia Asthma Other Carcinoma of colon Malignant hyperthermia due to anesthesia Father Hypertension Social History Social History Smoking status: Former smoker Second hand tobacco smoke exposure: No Additional smoking assessment comments: smoked a couple of years as a teenager Alcohol intake: current Substance use: never Do You Feel Safe in your Home?: Yes Lack of Transportation: No Lack of Food: Never True Current Housing: I Have Housing Concerned About Future Housing: No Difficulty Paying Gas/Electric Bills: No Difficulty Paying for Meds: No Currently Unemployed: No Education: Master's Degree or Higher Difficulty w/ Childcare or Family Care: No Spiritual care concerns: No Anes - Eval Final PreProcedure Day of Procedure 08/27/24 12:06 Patient weight: morbidly obese Heart: regular rate and rhythm Lungs: clear to auscultation Airway: Mallampati scale class II Neurological: alert and oriented Last oral intake: >/= 8 hours ASA classification: III Emergent: no Anesthetic plan: proceed Anesthesia type and monitoring: general, regional spinal and standard monitoring Results Review: All pre-operative results and documents have been reviewed as part of the pre-operative evaluation. Informed Consent: The patient's anesthetic plan and its attendant risks and benefits were discussed with the patient/family/POA. Questions we
[2024-08-27] MEDS: ceFAZolin 3 GM/D5W 100 ML 100 ML IVPB (12:11)
--- NOTE | 2024-08-27 13:32 | W.PM.OBCSD ---
OB - Delivery Note Procedure Delivery date: 08/27/24 Pre-op diagnosis: Positive Group B Strep (GBS), Previous Delivery and Other (desired sterility) Post-op Diagnosis: Same Induction method: None Delivery monitor: External FHT and External Uterine Procedure Performed: Repeat and Tubal Ligation (Repeat low transverse delivery with concurrent bilateral salpingectomies) Surgeon: Felton Hoover MD Anesthesia type: Spinal Description of Procedure/Findings: Findings: Normal-appearing uterus, tubes and ovaries. Techniques: The patient was taken to the operating room where she was prepared and draped in the usual sterile fashion in dorsal supine position with a leftward tilt. She received cefazolin preoperatively. Spinal anesthesia was found to be adequate. A Pfannenstiel skin incision was made along the previous scar line and was carried through to the underlying layer of the fascia. The fascia was incised in the midline and the incision was extended laterally. The fascia was dissected free of the underlying rectus muscles. The rectus muscles were in the midline. The peritoneum was identified, tented up and entered sharply. The peritoneal incision was extended superiorly and inferiorly with good visualization of the bladder. The bladder blade was placed. The vesicouterine peritoneum was identified, tented up and entered sharply. The incision was extended laterally and the bladder flap was developed. The bladder blade was replaced. The uterus was then incised sharply in a transverse fashion along the lower uterine segment. The incision was extended laterally. The infant's head was delivered atraumatically to the sterile field, followed by the body. The nose and mouth were bulb suctioned. After a delay, the cord was clamped and cut. The was handed off the field. Cord blood was collected. The placenta was removed manually and was passed off the field. The uterus was exteriorized and cleared of all clots and debris. The uterine incision was reapproximated using 0 Monocryl in a running, locked fashion. A second, imbricating layer of the same suture was run. Excellent hemostasis resulted as did excellent reapproximation of the normal anatomy. The left fallopian tube was then identified by following it out to the fimbriated end. It was grasped with a Harwood clamp and dissected off the ovary. The proximal tube was ligated with a free tie of O plain gut and excised, and passed off to be sent to pathology. The right Fallopian tube was similarly excised. Hemostasis was excellent. The uterus was returned the abdomen. The pelvis was irrigated copiously with warmed normal saline. Hemaderm was applied to the bladder flap. Rigorous hemostasis was assured. The fascial layer was reapproximated using 0 Vicryl in a running fashion. The skin was closed with a running, subcuticular stitch of 4 0 Vicryl. A Lana dressing was applied. Sponge, lap, needle and instrument counts were correct. The patient was taken to the recovery room in stable condition. The infant went to the nursery in stable condition. I was present and scrubbed the entire procedure. Specimen: Yes (cord blood, placenta) Estimated Blood Loss: 700 Drains: Yes (Phelps) Packing: No Pathology: Yes (cord blood, placenta, bilateral Fallopian tubes) Complications: None Condition: Stable Disposition: PACU Baby Date of : 08/27/24 Time of : 12:42 Gestational Age by Date: 37 gender: Female Weight (pounds): 6 Weight (ounces): 11 presentation: vertex Placenta delivery description: Manual Removal and Normal Configuration Cord Vessel Description: 3 Vessels and Delayed Cord Clamping
--- NOTE | 2024-08-27 13:40 | PM.OBDSVD ---
DS: Admitting Diagnosis Discharge Date 08/31/24 Admitting Diagnosis IUP at 37 3/7 weeks Chronic hypertension with worsening bp control Desired sterility GBS colonization DS: Discharge Diagnosis Discharge Diagnosis (1) Unwanted fertility: Code(s): Z30.09 - Encounter for other general counseling and advice on contraception Status: Acute (2) Chronic hypertension affecting : Code(s): O10.919 - Unspecified pre-existing hypertension complicating , unspecified trimester Status: Acute (3) GBS (group B Streptococcus carrier), +RV culture, currently : Code(s): O99.820 - Streptococcus B carrier state complicating Status: Acute (4) delivery delivered: Code(s): O82 - Encounter for delivery without indication Status: Acute OB - DS: Summary OB Procedures : NST and PIH Mgmt OB Procedures Intrapartum: and Tubal ligation (bilateral salpingectomy) OB Procedures: : RHo (D) lg Peripartum Data Procedures: Procedures Operation Date: 08/27/24 12:00 <No data on this case meets the specified criteria> Time Spent with Patient Time attestation: Total time spent providing and/or coordinating discharge services: DS: Data Data Completed and Pending Pending studies at discharge: Pending at discharge 08/27/24 12:44 Surgical [PTH] Routine 08/27/24 12:55 Surgical [PTH] Routine Labs on day of discharge: Labs from last 24 hours 08/27/24 10:42 Sodium Pending Potassium Pending Chloride Pending Carbon Dioxide Pending Anion Gap Pending BUN Pending Creatinine Pending Estim Creat Clear Calc Pending Estimated GFR Pending Glucose Pending Calcium Pending Total Bilirubin Pending AST Pending ALT Pending Alkaline Phosphatase Pending Total Protein Pending Albumin Pending HIV 1&2 Ab/P24 Ag 4thGn Negative Discharge Plan Discharge Attending physician on discharge: Felton Hoover Discharging Clinician: Felton Hoover Patient Disposition: Home Health Service Activity: may shower, may drive after 2 weeks and pelvic rest Diet: regular Wound Care Instructions: follow printed instructions Discharge Instructions: Call or return if temperature above 100.4? F, increased abdominal pain, increased vaginal bleeding or any new problems. Care Coordination: Patient to have [facility] for wound vac management, correction. They will start services on Saturday09/02/24. Their phone number is [phone] if you have any questions. Stand Alone Forms: General Discharge Information Follow-up/Referrals: Felton Hoover MD [Physician] - 4 Weeks Discharge Medications: New ibuprofen 600 mg tablet 600 mg PO Q6H PRN (Reason: cramps) Qty: 30 0RF ferrous sulfate 325 mg (65 mg iron) tablet 325 mg PO BID Qty: 60 0RF hydrocodone-acetaminophen 5-325 mg tablet 1 - 2 tablet PO Q6H PRN (Reason: pain) Qty: 30 0RF Continued fluoxetine 20 mg Tablet 20 mg PO DAILY nifedipine [Procardia XL] 30 mg tablet extended release 24hr 60 mg PO DAILY PNV cmb#95-ferrous fumarate-FA [] 28 mg iron- 800 mcg Tablet 1 tablet PO DAILY Discontinued aspirin 81 mg Tablet,Chewable 81 mg PO DAILY Date of admission: 08/27/24 10:00 Primary Care Provider: UNKNOWN,DOCTOR Admitting Provider: Felton Hoover Attending physician on admission: Felton Hoover Condition: Stable
[2024-08-27] MEDS: OXYTOCIN 30 UNITS/NS 500 ML 30 UNITS/500 ML BAG 125 UNITS IV CONT (14:20)
[2024-08-27 14:48] LABS: Alanine Aminotransferase 17 U/L (6-35); Alkaline Phosphatase 134 U/L (38-126); Anion Gap 5 mmol/L (4-12); Aspartate Amino Transferase 25 U/L (14-36); Bilirubin,Total 0.2 mg/dL (0.2-1.3); Blood Urea Nitrogen 14 mg/dL (7-17); Carbon Dioxide 24 mmol/L (22-30); Chloride 105 mmol/L (98-107); Estimated CRCL calculation 132 ml/min; Estimated Glomerular Filt Rate > 60; Glucose 83 mg/dL (65-110); Potassium 4.1 mmol/L (3.4-5.0); Sodium 134 mmol/L (137-145); Uric Acid 6.6 mg/dL (2.5-7.5)
[2024-08-27] MEDS: MORPHINE SULFATE INJ (*CRX) 10 MG/ML AMP 2 MG IV PUSH ×3 (15:22→15:59)
[2024-08-27] MEDS: miSOPROStol 200 MCG TABLET 1000 MCG RECTAL (15:30)
--- NOTE | 2024-08-27 16:56 | OBPPTRN ---
Patient transferred to post room #282 via stretcher. Support person present. Oriented to unit, room, information board, rooming in, admission packet and security measures. Patient verbalizes understanding.
[2024-08-27] MEDS: ACETAMINOPHEN 325 MG TABLET 650 MG PO ×2 (17:21→23:02)
[2024-08-27] MEDS: DOCUSATE SODIUM 100 MG CAPSULE PO (17:21)
[2024-08-27] MEDS: SIMETHICONE 80 MG TAB.CHEW PO (17:21)
[2024-08-27] MEDS: NIFEdipine 30 MG TAB.ER.24 PO (17:21)
[2024-08-27] MEDS: KETOROLAC 15 MG/ML VIAL (*BKC) IV PUSH ×2 (17:21→23:02)
[2024-08-27] MEDS: LIDOCAINE 5% PATCH 1 PATCH TRANSDERM (17:38)
--- NOTE | 2024-08-27 17:45 | PC.NURSE ---
Patient measure for her pump flanges. She measures at 17mm so recommended 21mm flange. Primary RN reviewed pump use instructions. Patient pumped with her last baby and felt that her flange size was incorrect. We referenced the pump flange measurement guide from Ellen. Reported to Primary RN.
[2024-08-27] MEDS: LABETALOL HCL 100 MG TABLET 200 MG PO (19:09)
[2024-08-28] MEDS: ACETAMINOPHEN 325 MG TABLET 650 MG PO ×3 (04:42→17:03)
[2024-08-28] MEDS: KETOROLAC 15 MG/ML VIAL (*BKC) IV PUSH ×2 (04:42→10:20)
[2024-08-28 04:45] VITALS: BP 140/84; PULSE 79; RESP 18; TEMP 36.3; O2SAT 100
[2024-08-28 06:00] LABS: Basophils Percent Auto 0.2 % (0.2-1.2); Eosinophils Absolute Auto 0.1 K/mm3 (0-0.3); Eosinophils Percent Auto 0.6 % (0-4.4); Hematocrit 22.7 % (37.0-47.0); Hemoglobin 7.6 g/dL (12.0-15.0); Immature Granulocyte Absolute 0.08 K/mm3 (0.00-0.031); Immature Granulocyte Percent A 0.5 % (0-0.5); Lymphocytes Absolute Auto 1.84 K/mm3 (0.9-3.2); Lymphocytes Percent Auto 12.6 % (18.3-44.2); Mean Corpuscular HGB Conc 33.5 g/dl (32-36); Mean Corpuscular Hemoglobin 30.3 pg (26-34); Mean Corpuscular Volume 90.4 fl (80-100); Mean Platelet Volume 11.4 fl (7.4-10.4); Monocytes Absolute Auto 0.8 K/mm3 (0.1-0.6); Monocytes Percent Auto 5.7 % (2.6-8.5); Neutrophils Absolute Auto 11.7 K/mm3 (1.3-6.7); Neutrophils Percent Auto 80.4 % (45.5-73.1); Platelet Count Result 201 k/mm3 (150-375); Red Blood Count 2.51 M/mm3 (4.2-5.4); Red Cell Distribution Width 12.9 % (11.5-14.5); White Blood Count 14.6 K/mm3 (4.5-10.0)
[2024-08-28 07:25] VITALS: BP 142/93; PULSE 73; RESP 16; TEMP 36.7; O2SAT 100
[2024-08-28] MEDS: NIFEdipine 30 MG TAB.ER.24 PO ×2 (09:26→17:03)
[2024-08-28] MEDS: SIMETHICONE 80 MG TAB.CHEW PO ×3 (09:26→17:02)
[2024-08-28] MEDS: MULTIVIT/MIN/PREN/FOL AC/IRON TABLET 1 TAB PO (09:26)
[2024-08-28] MEDS: DOCUSATE SODIUM 100 MG CAPSULE PO ×2 (09:26→17:02)
[2024-08-28] MEDS: FLUoxetine HCL 20 MG CAPSULE PO (09:26)
[2024-08-28] MEDS: POLYSACCHARIDE IRON COMPLEX 150 MG CAPSULE PO ×2 (09:26→17:04)
--- NOTE | 2024-08-28 09:57 | WPDANLDPN2 ---
Anes-Prog Note L&D Date/Time: 08/28/24 09:57 Comfortable throughout: section Neuraxial method: spinal Epidural/Spinal procedure site: clean & non-tender Neuro status: Neuro function grossly intact. Cardiovascular status: normal Respiratory status: normal Airway patency: baseline Mental status: baseline Post-Op hydration status: normal Vital Signs: Last Vital Signs Temp 36.7 C 08/28/24 07:25 Pulse 73 08/28/24 07:25 Resp 16 08/28/24 07:25 BP 142/93 H 08/28/24 07:25 Pulse Ox 100 08/28/24 07:25 O2 Del Method Room Air 08/28/24 04:45 Pain score (VAS): 3/10 I/O: Intake & Output 08/27/24 08/28/24 08/28/24 23:59 07:59 15:59 Intake Total 500 1000 Output Total 1320 2100 Balance -820 -1100 Post-procedural complaints: pruritis mild, no treatment Patient feedback: Patient satisfied with anesthetic care.
--- NOTE | 2024-08-28 09:57 | WPDANLDNPN2 ---
Anes-Prog Note L&D-Neuraxial Date/Time: 08/28/24 09:57 Neuraxial medications: intrathecal PF morphine Opiod-related complaints: pruritis mild, no treatment Patient feedback: Patient satisfied with post-operative pain management.
--- NOTE | 2024-08-28 10:00 | PC.NURSE ---
Introductions were made, then consulted with patient to assess needs related to . Discussed with mother her?plans to feed?her and the?experience so far. Pumping is going well and baby breastfed twice in the level 2 nursery this morning. Resources provided for inpatient and outpatient services with the feeding sheet, mom/baby guide and name/number written on the communication board. Mother voiced understanding of information and will call if there is a request for assistance. Reported to the Primary RN.
--- NOTE | 2024-08-28 12:01 | PM.OBPNVD ---
OB - PN: Subj Subjective Date/time seen: 08/28/24 12:01 Narrative: Pain OK. Tolerating diet. Had an episode of vaginal bleeding yesterday that responded to oxytocin IV, uterine massage, and misoprostol [place]. NEGRITA dressing was saturated with serosanguineous drainage, so was removed. OB - PN: Obj Data Labs 08/28/24 04:37 08/27/24 14:02 Labs: Laboratory Results - last 24 hr 08/27/24 08/28/24 14:02 04:37 WBC 14.6 H RBC 2.51 L Hgb 7.6 L D Hct 22.7 L MCV 90.4 MCH 30.3 MCHC 33.5 RDW 12.9 Plt Count 201 MPV 11.4 H Immature Gran % (Auto) 0.5 Neut % (Auto) 80.4 H Lymph % (Auto) 12.6 L Cochran % (Auto) 5.7 Eos % (Auto) 0.6 Baso % (Auto) 0.2 Lymph # (Auto) 1.84 Cochran # (Auto) 0.8 H Eos # (Auto) 0.1 Baso # (Auto) 0.0 Abs Immat Gran (auto) 0.08 H Absolute Neuts (auto) 11.7 H Absolute Nucleated RBC 0.000 Nucleated RBC % 0.0 Sodium 134 L Potassium 4.1 Chloride 105 Carbon Dioxide 24 Anion Gap 5 BUN 14 Creatinine 0.70 Estim Creat Clear Calc 132 Estimated GFR > 60 Glucose 83 Uric Acid 6.6 Calcium 9.0 Total Bilirubin 0.2 AST 25 ALT 17 Alkaline Phosphatase 134 H Total Protein 6.0 L Albumin 3.0 L Blood Type A Negative Antibody Screen Negative Screen Negative Baby's Blood Type O pos Baby's CHUCK Negative Doses of RhIg Required 1 OB - PN A/P Plan day: 1 Comments: A: POD#1, doing well. BP stable. P: Routine care. Try reapplying a new NEGRITA. Exam Narrative: AVSS I/O OK ABD soft, nontender, fundus firm. Incision with small serosanguineous drainage from center. EXT nontender
[2024-08-28] MEDS: RHO(D) IMMUNE GLOBULIN 300 MCG/2 ML SYRINGE IM (12:06)
[2024-08-28 12:16] VITALS: BP 152/80; PULSE 81; RESP 16; TEMP 36.6; O2SAT 100
--- NOTE | 2024-08-28 14:43 | PCCCNOTE ---
Notified by TAINA Weaver that patient will need a home wound vac at discharge and Wound care will submit request for authorization to Ronal (wound vac provider). Contacted patient and her spouse answered and they are agreeable to [facility] following pt. Referral made to Melissa, clinical applications manager at [facility], and they can accept pt and will see her on 09/02/24.
--- NOTE | 2024-08-28 16:20 | PC.NURSE ---
Consulted with patient to assess needs related to . Discussed with mother her successes, concerns and any questions she has. We reviewed working with the , supporting breast, protecting her nipples with an optimal deep latch, good positioning. Baby is vigorous and fussy and not able to latch to the breast. Mom expressed some milk and we tried to entice baby but she wouldn't latch. She sucked on a gloved finger and it helped to remoisten her mouth. After several attempts, baby was able to latch and nurse effectively. Reviewed positioning and alignment, supporting breast, off-centered (asymmetrical latch) and leading with the chin with big, open, wide gape. latched optimally to the [left] breast in [football] position. Education given to the mother of how to visualize the suckling. The was [able] to maintain latch without discomfort to mother. Mother voiced understanding of the education shared, to call for assistance if the does not latch or if there is discomfort with . Reported to the Primary RN.
[2024-08-28] MEDS: IBUPROFEN 600 MG TABLET PO (17:02)
[2024-08-28 19:01] VITALS: BP 143/81; PULSE 108; RESP 18; TEMP 37.2; O2SAT 99
[2024-08-28 20:28] VITALS: BP 143/78; PULSE 108; TEMP 37.3
[2024-08-29] MEDS: ACETAMINOPHEN 325 MG TABLET 650 MG PO ×4 (00:02→20:39)
[2024-08-29] MEDS: IBUPROFEN 600 MG TABLET PO ×4 (00:02→20:40)
[2024-08-29 01:20] VITALS: BP 145/85; PULSE 101; RESP 18; TEMP 37.1; O2SAT 100
--- NOTE | 2024-08-29 08:30 | PC.NURSE ---
Father out at the desk requesting assistance with the breast pump. One side wasn't working, and we disconnected and put everything back together and it began to work again. Discussed with mother baby's 9% weight loss and recommended pumping after most feedings and supplementing with any pumped breastmilk, as well as formula. Mom states that she didn't have the best milk supply with her first baby but that she was successful with her last baby. We reviewed possible risk factors for low milk production and mom denies infertility, PCOS, hypothyroid, or any other significant medical history. She did have a significant QBL and currently has a wound vac to her incision. Baby also had a rough start and was in level two for awhile. Encouraged mom to stick with pumping and feeding consistently, and adding in supplementation for weight gain. Mom agrees to this plan and is still well, though for extended durations sometimes. Name/number on white board and patient will call out for assistance as needed. Reported to primary RN and Dr. Ku.
--- NOTE | 2024-08-29 08:30 | PM.OBPNVD ---
OB - PN: Subj Subjective Date/time seen: 08/29/24 08:30 Narrative: Pain OK. Tolerating diet. Wound care was consulted yesterday. They have fitted her with a wound vac. OB - PN: Obj Data Labs 08/28/24 04:37 08/27/24 14:02 Labs: Laboratory Results - last 24 hr 08/28/24 04:37 Blood Type A Negative Antibody Screen Negative Screen Negative Baby's Blood Type O pos Baby's CHUCK Negative Doses of RhIg Required 1 OB - PN A/P Plan day: 2 Comments: A: POD#2, doing well. P: Routine care. Exam Narrative: AVSS I/O OK ABD soft, nontender, fundus firm. Incision clean and dry. Wound vac in place. EXT nontender
[2024-08-29 08:55] VITALS: BP 148/90; PULSE 103; RESP 16; TEMP 36.9; O2SAT 99
[2024-08-29] MEDS: FLUoxetine HCL 20 MG CAPSULE PO (09:00)
[2024-08-29] MEDS: NIFEdipine 30 MG TAB.ER.24 PO ×2 (09:00→16:23)
[2024-08-29] MEDS: POLYSACCHARIDE IRON COMPLEX 150 MG CAPSULE PO ×2 (09:00→16:23)
[2024-08-29] MEDS: MULTIVIT/MIN/PREN/FOL AC/IRON TABLET 1 TAB PO (09:00)
[2024-08-29] MEDS: DOCUSATE SODIUM 100 MG CAPSULE PO ×2 (09:00→16:23)
[2024-08-29] MEDS: LANOLIN (LANSINOH) 7.5 GM CREAM 1 APPLIC TOPICAL (09:01)
[2024-08-29] MEDS: HYDROcodone/acetaminophen (*CRX) 5-325 MG TABLET 1 TAB PO ×2 (09:03→16:23)
[2024-08-29 16:20] VITALS: BP 143/82; PULSE 103
[2024-08-29 18:18] VITALS: BP 153/93; PULSE 103; RESP 18; TEMP 36.6
[2024-08-29 23:10] VITALS: BP 153/90; PULSE 109; RESP 16; TEMP 36.3; O2SAT 96
[2024-08-30] MEDS: ACETAMINOPHEN 325 MG TABLET 650 MG PO ×4 (02:53→21:30)
[2024-08-30] MEDS: IBUPROFEN 600 MG TABLET PO ×4 (02:53→21:30)
[2024-08-30 03:00] VITALS: BP 156/91; PULSE 97; RESP 16; TEMP 35.7; O2SAT 100
[2024-08-30 07:30] VITALS: BP 151/98; PULSE 104; RESP 18; TEMP 36.8
[2024-08-30] MEDS: MULTIVIT/MIN/PREN/FOL AC/IRON TABLET 1 TAB PO (08:55)
[2024-08-30] MEDS: DOCUSATE SODIUM 100 MG CAPSULE PO ×2 (08:55→17:17)
[2024-08-30] MEDS: NIFEdipine 30 MG TAB.ER.24 PO ×2 (08:55→17:17)
[2024-08-30] MEDS: SIMETHICONE 80 MG TAB.CHEW PO ×3 (08:56→17:15)
[2024-08-30] MEDS: FLUoxetine HCL 20 MG CAPSULE PO (08:56)
[2024-08-30] MEDS: POLYSACCHARIDE IRON COMPLEX 150 MG CAPSULE PO ×2 (08:56→17:17)
[2024-08-30 11:30] VITALS: BP 131/78
--- NOTE | 2024-08-30 14:36 | PM.OBPNVD ---
OB - PN: Subj Subjective Date/time seen: 08/30/24 14:36 Narrative: Pain OK. Tolerating diet. OB - PN: Obj Data Labs 08/28/24 04:37 08/27/24 14:02 Labs: Laboratory Results - last 24 hr 08/28/24 04:37 Blood Type A Negative Antibody Screen Negative Screen Negative Baby's Blood Type O pos Baby's CHUCK Negative Doses of RhIg Required 1 OB - PN A/P Plan Comments: A: POD#3, doing well. P: Routine care. Exam Narrative: AVSS I/O OK ABD soft, nontender, fundus firm. Incision clean and dry. Wound vac in place. EXT nontender
[2024-08-30 15:00] VITALS: BP 158/98
[2024-08-30 20:10] VITALS: BP 150/101; PULSE 101; RESP 18; TEMP 37.3; O2SAT 100
[2024-08-31 01:50] VITALS: BP 139/90; PULSE 98
[2024-08-31] MEDS: IBUPROFEN 600 MG TABLET PO ×2 (06:04→13:01)
[2024-08-31] MEDS: ACETAMINOPHEN 325 MG TABLET 650 MG PO ×2 (06:04→13:01)
[2024-08-31 06:06] VITALS: BP 151/97; PULSE 96
[2024-08-31 07:45] VITALS: BP 156/99; PULSE 92; RESP 16; TEMP 36.4; O2SAT 100
[2024-08-31] MEDS: SIMETHICONE 80 MG TAB.CHEW PO ×2 (08:17→13:01)
[2024-08-31] MEDS: NIFEdipine 30 MG TAB.ER.24 PO (08:17)
[2024-08-31] MEDS: DOCUSATE SODIUM 100 MG CAPSULE PO (08:17)
[2024-08-31] MEDS: POLYSACCHARIDE IRON COMPLEX 150 MG CAPSULE PO (08:17)
[2024-08-31] MEDS: MULTIVIT/MIN/PREN/FOL AC/IRON TABLET 1 TAB PO (08:18)
[2024-08-31] MEDS: FLUoxetine HCL 20 MG CAPSULE PO (08:18)
--- NOTE | 2024-08-31 08:53 | PM.OBPNVD ---
OB - PN: Subj Subjective Date/time seen: 08/31/24 08:53 Narrative: Pain OK. Tolerating diet. Would like to go home. OB - PN: Obj Data Labs 08/28/24 04:37 08/27/24 14:02 Labs: Laboratory Results - last 24 hr 08/28/24 04:37 Blood Type A Negative Antibody Screen Negative Screen Negative Baby's Blood Type O pos Baby's CHUCK Negative Doses of RhIg Required 1 OB - PN A/P Plan day: 4 Comments: A: POD#4, doing well. P: Home to f/u 4 weeks. Exam Narrative: AVSS ABD soft, nontender, fundus firm. Incision c/d/i. EXT nontender
--- NOTE | 2024-08-31 11:00 | PC.NURSE ---
0815 Introductions were made, then consulted with patient to assess needs related to . Discussed with mother her?plans to feed?her infant and the?experience so far. Per mother she feels like her milk is coming in and baby has been from both sides for 15 minutes each and then she is supplementing with formula after each feeding due to weight loss, she was using a breast pump after nursing as well but has stopped. RN to check with the residential youth counselor to see if she thinks mother should still be using her breast pump to protect her milk supply while baby is still needing to gain weight, then she could supplement with pumped breast milk and/or formula. Resources provided for inpatient and outpatient services with the feeding sheet, mom/baby guide and name written on the communication board. Mother voiced understanding of information and will call if there is a request for assistance. Reported to the Primary RN. [address] Lawrence (Toxicologist) who felt that she should still be putting baby to breast, using the breast pump after nursing to protect her milk supply and then supplementing with either pumped breast milk and/or formula. Dr. Lawrence also talked with the parents regarding this plan. RN to let Primary RN know as well.
[2024-08-31 12:42] VITALS: BP 155/84; PULSE 114; RESP 16; TEMP 37.1; O2SAT 100
== END 2024-08-31 15:23 | disposition home health service (06) | DRG 784 ==
LOC: ANHLDR 10:05 → ANHOB2 17:01
PROVIDERS: Admitting Provider Obstetrics & Gynecology; Visit Provider Obstetrics & Gynecology
PROC: 10D00Z1 Extraction of Products of Conception, Low, Open Approach (ICD-10-PCS; CPT 59514; principal; 2024-08-27 12:00)
DX: O34.211 Maternal care for low transverse scar from previous cesarean delivery (principal); O10.92 Unspecified pre-existing hypertension complicating childbirth; Z37.0 Single live birth; Z3A.37 37 weeks gestation of pregnancy; Z30.2 Encounter for sterilization; O99.824 Streptococcus B carrier state complicating childbirth
CPT/HCPCS: 36415; 80053; 84550; 85025; 85461; 86703; 86850; 86900; 86901; 88302; 88307; 90384; A9270; G0432; J0690; J1885; J2270; J2274; J2590; J2790; J7120